=== PATIENT | male | born 1950 | race Caucasian/White ===

== ENCOUNTER 2020-12-23 19:10 | Inpatient (IN) | payer MEDICARE ==
[2020-12-23] MEDS ORDERED: MORPHINE SULFATE 4 MG/ML SYRINGE IV STA (19:26)
[2020-12-23] MEDS ORDERED: SODIUM CHLORIDE 0.9% 1,000 ML IV STA (19:26)
[2020-12-23] MEDS ORDERED: ONDANSETRON 4 MG/2 ML VIAL IVP STA (19:26)
[2020-12-23 19:51] LABS: Basophils # (A) 0.1 k/uL (0-0.2); Basophils % (A) 0 %; Eosinophils # (A) 0.2 k/uL (0-0.7); Eosinophils % (A) 1 %; HCT 42.4 % (39.0-53.0); HGB 14.3 gm/dL (13.0-17.5); Lymphocytes # (A) 1.5 k/uL (1.0-4.8); Lymphocytes % (A) 5 %; MCH 30.7 pg (25.0-35.0); MCHC 33.7 g/dL (31.0-37.0); MCV 91.2 fL (80.0-100.0); Mean Platelet Volume 7.3; Monocytes # (A) 1.1 k/uL (0-1.0); Monocytes % (A) 4 %; Neutrophils % (A) 89 %; Platelet Count 262 k/uL (150-450); RBC 4.65 m/uL (4.30-5.90); WBC 30.3 k/uL (3.8-10.6)
[2020-12-23 20:18] LABS: Appearance,Urine Clear (Clear); Bilirubin,Urine Negative (Negative); Blood,Urine Large (Negative); Color,Urine Yellow; Glucose,Urine (UA) Negative (Negative); Ketones,Urine 2+ (Negative); Leukocyte Esterase,Urine Moderate (Negative); Mucus,Urine Rare /hpf; Nitrite,Urine Negative (Negative); PH, Urine 6.5 (5.0-8.0); Protein,Urine 1+ (Negative); RBC,Urine >182 /hpf (0-5); Specific Gravity,Urine 1.022 (1.001-1.035); WBC,Urine 13 /hpf (0-5)
[2020-12-23 20:20] LABS: ALT 22 U/L (4-49); AST 36 U/L (17-59); African American GFR (CKD) >90 (>60 ml/min/1.73 sqM); Albumin 3.9 g/dL (3.5-5.0); Alkaline Phosphatase 89 U/L (38-126); Amylase 47 U/L (30-110); Anion Gap 10 mmol/L; Blood Urea Nitrogen 13 mg/dL (9-20); Calcium 9.3 mg/dL (8.4-10.2); Carbon Dioxide 23 mmol/L (22-30); Chloride 100 mmol/L (98-107); Glucose 109 mg/dL (74-99); Lipase 43 U/L (23-300); Non-African American GFR(CKD) 90 (>60 ml/min/1.73 sqM); Sodium 133 mmol/L (137-145); Total Bilirubin 1.8 mg/dL (0.2-1.3)
--- NOTE | 2020-12-23 21:18 | CT ---
EXAMINATION TYPE: CT abdomen pelvis w con DATE OF EXAM: 12/23/2020 COMPARISON: None available HISTORY: LT side abdominal pain, back pain CT DLP: 1153.7 mGycm Automated exposure control for dose reduction was used. TECHNIQUE: Helical acquisition of images was performed from the lung bases through the pelvis. CONTRAST: Performed without Oral Contrast and with IV Contrast, patient injected with 100 mL of Isovue 300. FINDINGS: LUNG BASES: No significant abnormality is appreciated. LIVER/GB: No acute abnormality is appreciated. Hepatic steatosis and cholecystectomy seen. PANCREAS: No significant abnormality is seen. SPLEEN: No significant abnormality is seen. ADRENALS: No significant abnormality is seen. KIDNEYS: No significant abnormality is seen. FREE AIR: No free air is visualized. RETROPERITONEAL ADENOPATHY: None visualized REPRODUCTIVE ORGANS: No significant abnormality is seen URINARY BLADDER: Urinary bladder is decompressed by Stanley catheter with intraluminal air seen, likel y postprocedural change. PELVIC ADENOPATHY: None visualized. OSSEOUS STRUCTURES: No significant abnormality is seen. BOWEL: No significant abnormality is seen. OTHER: Moderate atherosclerotic disease. 2.8 cm abdominal aortic ectasia. IMPRESSION: NO DEFINITE ACUTE ABNORMALITY. Chronic and incidental findings as above.
--- NOTE | 2020-12-23 21:37 | ED ---
Abdominal Pain HPI - General Chief Complaint: Abdominal Pain Stated Complaint: ABD Pain Time Seen by Provider: 12/23/20 19:17 Source: patient, RN notes reviewed Mode of arrival: EMS Limitations: no limitations - History of Present Illness Initial Comments: Patient is a 70-year-old male that presents to the emergency department complaining of left lower quadrant pain. He notes he was recently seen his urologist in office procedure they reinsert the catheter and now is having pain. Patient noted that he was having some hematuria in his catheter. He denied any hematochezia melena. He was tender in the left lower quadrant. He was otherwise well-appearing. He denied any chest pain shortness of breath headache nausea vomiting diarrhea constipation fever fatigue chills - Related Data Home Medications Medication Instructions Recorded Confirmed Bethanechol [Urecholine] 25 mg PO TID 12/23/20 12/23/20 Gabapentin 300 mg PO TID 12/23/20 12/23/20 Memantine [Namenda] 10 mg PO BID 12/23/20 12/23/20 Methadone [Dolophine] 5 mg PO TID 12/23/20 12/23/20 Omeprazole 20 mg PO DAILY 12/23/20 12/23/20 Tamsulosin HCl [Flomax] 0.4 mg PO BID 12/23/20 12/23/20 Warfarin Sodium 4 mg PO MOWEFR 12/23/20 12/23/20 Warfarin Sodium 5 mg PO SUTUTHSA 12/23/20 12/23/20 Allergies Allergy/AdvReac Type Severity Reaction Status Date / Time meloxicam [From Mobic] Allergy Anaphylaxis Verified 12/23/20 20:27 Penicillins Allergy Anaphylaxis Verified 12/23/20 20:27 Review of Systems ROS Statement: Those systems with pertinent positive or pertinent negative responses have been documented in the HPI. ROS Other: All systems not noted in ROS Statement are negative. Past Medical History Past Medical History: Chest Pain / Angina, Deep Vein Thrombosis (DVT), Hypertension, Pulmonary Embolus (PE) History of Any Multi-Drug Resistant Organisms: None Reported Past Surgical History: Appendectomy, Cholecystectomy Past Psychological History: No Psychological Hx Reported Smoking Status: Former smoker Past Alcohol Use History: None Reported Past Drug Use History: None Reported General Exam Limitations: no limitations General appearance: alert, in no apparent distress Head exam: Present: atraumatic, normocephalic, normal inspection Eye exam: Present: normal appearance, PERRL, EOMI. Absent: scleral icterus, conjunctival injection, periorbital swelling Neck exam: Present: normal inspection Respiratory exam: Present: normal lung sounds bilaterally. Absent: respiratory distress, wheezes, rales, rhonchi, stridor Cardiovascular Exam: Present: regular rate, normal rhythm, normal heart sounds. Absent: systolic murmur, diastolic murmur, rubs, gallop, clicks GI/Abdominal exam: Present: soft, tenderness (Left lower quadrant), normal bowel sounds. Absent: distended, guarding, rebound, rigid Extremities exam: Present: normal inspection, full ROM, normal capillary refill. Absent: tenderness, pedal edema, joint swelling, calf tenderness Neurological exam: Present: alert, oriented X3 Psychiatric exam: Present: normal affect, normal mood Skin exam: Present: warm, dry, intact, normal color. Absent: rash Course Vital Signs 12/23/20 12/23/20 12/23/20 19:17 20:27 21:00 Temperature 98.5 F Pulse Rate 78 82 81 Respiratory 18 18 Rate Blood Pressure 148/83 123/70 112/68 O2 Sat by Pulse 95 94 L 93 L Oximetry 12/23/20 21:50 Temperature 101.2 F H Pulse Rate Respiratory Rate Blood Pressure O2 Sat by Pulse Oximetry Medical Decision Making - Medical Decision Making 70-year-old male complaining of left lower quadrant with tenderness to palpation. Labs, 1 L normal saline, 2 mg of Toradol, 4 mg of Zofran, CT the abdomen and pelvis ordered. CT abdomen and pelvis negative for any acute findings. Labs: White blood cells 30.3, rest unremarkable. Patient still in pain 2 mg of morphine given. Case discussed with Dr. Goodwin, patient will be admitted for observation with repeat labs in the morning. Dr. reynaldo mg was consulted and will except admit. Vancomycin and Levaquin ordered for IV antibiotics, blood cultures ordered. - Lab Data Result diagrams: 12/23/20 19:41 12/23/20 19:41 Lab Results 12/23/20 12/23/20 12/23/20 Range/Units 19:41 19:41 19:41 WBC 30.3 H (3.8-10.6) k/uL RBC 4.65 (4.30-5.90) m/uL Hgb 14.3 (13.0-17.5) gm/dL Hct 42.4 (39.0-53.0) % MCV 91.2 (80.0-100.0) fL MCH 30.7 (25.0-35.0) pg MCHC 33.7 (31.0-37.0) g/dL RDW 13.0 (11.5-15.5) % Plt Count 262 (150-450) k/uL MPV 7.3 Neutrophils % 89 % Lymphocytes % 5 % Monocytes % 4 % Eosinophils % 1 % Basophils % 0 % Neutrophils # 27.0 H (1.3-7.7) k/uL Lymphocytes # 1.5 (1.0-4.8) k/uL Monocytes # 1.1 H (0-1.0) k/uL Eosinophils # 0.2 (0-0.7) k/uL Basophils # 0.1 (0-0.2) k/uL Sodium 133 L (137-145) mmol/L Potassium 4.0 (3.5-5.1) mmol/L Chloride 100 (98-107) mmol/L Carbon Dioxide 23 (22-30) mmol/L Anion Gap 10 mmol/L BUN 13 (9-20) mg/dL Creatinine 0.82 (0.66-1.25) mg/dL Est GFR (CKD-EPI)AfAm >90 (>60 ml/min/1.73 sqM) Est GFR (CKD-EPI)NonAf 90 (>60 ml/min/1.73 sqM) Glucose 109 H (74-99) mg/dL Lactic Ac Sepsis Rflx Plasma Lactic Acid Jorge (0.7-2.0) mmol/L Calcium 9.3 (8.4-10.2) mg/dL Total Bilirubin 1.8 H (0.2-1.3) mg/dL AST 36 (17-59) U/L ALT 22 (4-49) U/L Alkaline Phosphatase 89 (38-126) U/L Total Protein 7.0 (6.3-8.2) g/dL Albumin 3.9 (3.5-5.0) g/dL Amylase 47 (30-110) U/L Lipase 43 (23-300) U/L Urine Color Yellow Urine Appearance Clear (Clear) Urine pH 6.5 (5.0-8.0) Ur Specific [place] 1.022 (1.001-1.035) Urine Protein 1+ H (Negative) Urine Glucose (UA) Negative (Negative) Urine Ketones 2+ H (Negative) Urine Blood Large H (Negative) Urine Nitrite Negative (Negative) Urine Bilirubin Negative (Negative) Urine Urobilinogen 8.0 (<2.0) mg/dL Ur Leukocyte Esterase Moderate H (Negative) Urine RBC >182 H (0-5) /hpf Urine WBC 13 H (0-5) /hpf Urine Mucus Rare H (None) /hpf 12/23/20 12/23/20 Range/Units 19:41 20:11 WBC (3.8-10.6) k/uL RBC (4.30-5.90) m/uL Hgb (13.0-17.5) gm/dL Hct (39.0-53.0) % MCV (80.0-100.0) fL MCH (25.0-35.0) pg MCHC (31.0-37.0) g/dL RDW (11.5-15.5) % Plt Count (150-450) k/uL MPV Neutrophils % % Lymphocytes % % Monocytes % % Eosinophils % % Basophils % % Neutrophils # (1.3-7.7) k/uL Lymphocytes # (1.0-4.8) k/uL Monocytes # (0-1.0) k/uL Eosinophils # (0-0.7) k/uL Basophils # (0-0.2) k/uL Sodium (137-145) mmol/L Potassium (3.5-5.1) mmol/L Chloride (98-107) mmol/L Carbon Dioxide (22-30) mmol/L Anion Gap mmol/L BUN (9-20) mg/dL Creatinine (0.66-1.25) mg/dL Est GFR (CKD-EPI)AfAm (>60 ml/min/1.73 sqM) Est GFR (CKD-EPI)NonAf (>60 ml/min/1.73 sqM) Glucose (74-99) mg/dL Lactic Ac Sepsis Rflx Y Plasma Lactic Acid Jorge 2.2 H* (0.7-2.0) mmol/L Calcium (8.4-10.2) mg/dL Total Bilirubin (0.2-1.3) mg/dL AST (17-59) U/L ALT (4-49) U/L Alkaline Phosphatase (38-126) U/L Total Protein (6.3-8.2) g/dL Albumin (3.5-5.0) g/dL Amylase (30-110) U/L Lipase (23-300) U/L Urine Color Urine Appearance (Clear) Urine pH (5.0-8.0) Ur Specific [place] (1.001-1.035) Urine Protein (Negative) Urine Glucose (UA) (Negative) Urine Ketones (Negative) Urine Blood (Negative) Urine Nitrite (Negative) Urine Bilirubin (Negative) Urine Urobilinogen (<2.0) mg/dL Ur Leukocyte Esterase (Negative) Urine RBC (0-5) /hpf Urine WBC (0-5) /hpf Urine Mucus (None) /hpf - EKG Data -: EKG Interpreted by [place] EKG shows normal: sinus rhythm Rate: normal EKG Comments: Ventricular rate 73 bpm, FL interval 160 ms, QRS duration 80 ms, QTC 407 ms, PRT axes 70/51/60. Normal sinus rhythm, normal ECG. - Radiology Data Radiology results: report reviewed, image reviewed Computed tomography scan of the abdomen and pelvis: No definite acute abnormality. Chronic and incidental findings as above. Disposition Clinical Impression: Urinary tract infection, Bacteremia Disposition: ADMITTED IP TO THIS HOSP Condition: Stable Referrals: None,Stated [Primary Care Provider] - 1-2 days Time of Disposition: 22:29
[2020-12-23] MEDS ORDERED: metroNIDAZOLE-NS PMX 500 MG in SALINE 1 100ML.BAG IVPB STA (22:02)
[2020-12-23] MEDS ORDERED: LEVOFLOXACIN 750MG-D5W PMX 750 MG in DEXTROSE/WATER 1 150ML.BAG IVPB STA (22:02)
[2020-12-23] MEDS ORDERED: ACETAMINOPHEN TAB 500 MG TAB PO STA (22:02)
[2020-12-23] MEDS ORDERED: NALOXONE 0.4 MG/ML 1 ML VIAL IV PRN (22:06)
[2020-12-23] MEDS ORDERED: VANCOMYCIN IV PER PHARMACY 1 EACH MISC MISCELLANE PRN (22:09)
[2020-12-23] MEDS ORDERED: VANCOMYCIN 1,500 MG in SODIUM CHLORIDE 0.9% 250 ML IVPB ONE (22:15)
[2020-12-23] MEDS: SODIUM CHLORIDE 0.9% 1,000 ML IV SCH (23:06)
[2020-12-23] MEDS: MORPHINE SULFATE 4 MG/ML SYRINGE IV PRN (23:06)
--- NOTE | 2020-12-24 03:18 | P.HPIM ---
History of Present Illness H&P Date: 12/24/20 The patient is a 70-year-old male with a PMH of BPH, history of DVT and PE on Coumadin, who presented to the ED w/ complaints of abdominal pain and dysuria. He reports that his symptoms started 4-5 days ago with groosly blood urine. He notes having undergone multiple foleycatheter placements due to his significant BPH would last one roughly about a week ago with subsequent removal and voiding trial. The patient notes that he has been having difficulty at home dose self cathing and reports dysuria. He reports that over the past 2-3 days, he has had left lower quadrant abdominal pain with radiation to the left flank. The pain is 10 out of 10 at time of evaluation, aching in nature, with no alleviating or exacerbating features. He denied fever, chills, nausea, vomiting, diarrhea. Denied chest pain, shortness of breath or cough. CT abdomen and pelvis with contrast in the emergency room was unremarkable. Review of systems: Pertinent positives and negatives as discussed in HPI, a complete review of systems was performed and all other systems are negative. Physical examination: General: non toxic, in moderate distress, appears at stated age, normal weight Derm: no unusual rashes/lesions no unusual ecchymoses, warm, dry Head: atraumatic, normocephalic, symmetric Eyes: EOMI, no lid lag, anicteric sclera, pupils equal round reactive to light ENT: Nose and ears atraumatic, no thrush, no pharyngeal erythema Neck: No thyromegaly, no cervical lymphadenopathy, trachea midline, supple Mouth: no lip lesion, mucus membranes moist Cardiovascular: S1S2 reg, no murmur, positive posterior tibial pulse bilateral, no edema, capillary refill less than 2 seconds Lungs: CTA bilateral, no rhonchi, no rales , no accessory muscle use Abdominal: soft, left CVA tenderness and left diffuse abdominal tenderness moderate, no guarding, no appreciable organomegaly, normal bowel sounds Ext: no gross muscle atrophy, muscle strength 5 out of 5 in all 4 extremities grossly, no contractures, Neuro: CN II-XI grossly intact, light touch intact all 4 extremities, finger to nose within normal limits, Psych: Alert, oriented, appropriate affect Assessment/plan Severe sepsis secondary to UTI -Continue Levaquin -IV fluids -Urology consult -Urine cultures Lactic acidosis -Continue with IV fluids and monitor for resolution Chronic conditions: DVT/PE -Continue with home meds DVT prophylaxis -Coumadin The patient is admitted with an anticipated greater than 2 midnight stay for evaluation of sepsis uti. CODE STATUS: Full code Discussed with: patient Anticipated discharge date: 2-[address]: Home Past Medical History Past Medical History: Chest Pain / Angina, Deep Vein Thrombosis (DVT), Hypertension, Pulmonary Embolus (PE) History of Any Multi-Drug Resistant Organisms: None Reported Past Surgical History: Appendectomy, Cholecystectomy, Heart Catheterization With Stent, Orthopedic Surgery, Tonsillectomy Additional Past Surgical History / Comment(s): Made reference to metal plates in his neck Past Anesthesia/Blood Transfusion Reactions: No Reported Reaction Date of Last Stent Placement:: 1979 Past Psychological History: No Psychological Hx Reported Smoking Status: Former smoker Past Alcohol Use History: None Reported Past Drug Use History: None Reported Medications and Allergies Home Medications Medication Instructions Recorded Confirmed Type Bethanechol [Urecholine] 25 mg PO TID 12/23/20 12/23/20 History Gabapentin 300 mg PO TID 12/23/20 12/23/20 History Memantine [Namenda] 10 mg PO BID 12/23/20 12/23/20 History Methadone [Dolophine] 5 mg PO TID 12/23/20 12/23/20 History Omeprazole 20 mg PO DAILY 12/23/20 12/23/20 History Tamsulosin HCl [Flomax] 0.4 mg PO BID 12/23/20 12/23/20 History Warfarin Sodium 4 mg PO MOWEFR 12/23/20 12/23/20 History Warfarin Sodium 5 mg PO SUTUTHSA 12/23/20 12/23/20 History Allergies Allergy/AdvReac Type Severity Reaction Status Date / Time meloxicam [From Mobic] Allergy Anaphylaxis Verified 12/23/20 20:27 Penicillins Allergy Anaphylaxis Verified 12/23/20 20:27 Physical Exam Vitals: Vital Signs Temp Pulse Pulse Resp BP BP Pulse Ox 12/23/20 23:56 98.3 F 67 18 145/80 97 12/23/20 23:00 97.8 F 68 16 111/76 12/23/20 21:50 101.2 F H 12/23/20 21:00 81 18 112/68 93 L 12/23/20 20:27 82 123/70 94 L 12/23/20 19:17 98.5 F 78 18 148/83 95 Intake and Output 12/23/20 12/23/20 12/24/20 14:59 22:59 06:59 Output Total 550 Balance -550 Output: Urine 550 Other: Weight 96.162 kg 96.162 kg Results CBC & Chem 7: 12/23/20 19:41 12/23/20 19:41 Labs: Abnormal Lab Results - Last 24 Hours (Table) 12/23/20 12/23/20 12/23/20 Range/Units 19:41 19:41 19:41 WBC 30.3 H (3.8-10.6) k/uL Neutrophils # 27.0 H (1.3-7.7) k/uL Monocytes # 1.1 H (0-1.0) k/uL Sodium 133 L (137-145) mmol/L Glucose 109 H (74-99) mg/dL Plasma Lactic Acid Jorge (0.7-2.0) mmol/L Total Bilirubin 1.8 H (0.2-1.3) mg/dL Urine Protein 1+ H (Negative) Urine Ketones 2+ H (Negative) Urine Blood Large H (Negative) Ur Leukocyte Esterase Moderate H (Negative) Urine RBC >182 H (0-5) /hpf Urine WBC 13 H (0-5) /hpf Urine Mucus Rare H (None) /hpf 12/23/20 Range/Units 19:41 WBC (3.8-10.6) k/uL Neutrophils # (1.3-7.7) k/uL Monocytes # (0-1.0) k/uL Sodium (137-145) mmol/L Glucose (74-99) mg/dL Plasma Lactic Acid Jorge 2.2 H* (0.7-2.0) mmol/L Total Bilirubin (0.2-1.3) mg/dL Urine Protein (Negative) Urine Ketones (Negative) Urine Blood (Negative) Ur Leukocyte Esterase (Negative) Urine RBC (0-5) /hpf Urine WBC (0-5) /hpf Urine Mucus (None) /hpf Thrombosis Risk Factor Assmnt - Choose All That Apply Each Factor Represents 1 point: Abnormal pulmonary function (COPD), Medical pt on bed rest, Obesity (BMI >25), Sepsis (< 1month) Other Risk Factors: Yes Each Risk Factor Represents 2 Points: Age 61-74 years Each Risk Factor Represents 3 Points: History of DVT/PE Other congenital or acquired thrombophilia - If yes, enter type in comment: No Thrombosis Risk Factor Assessment Total Risk Factor Score: 9 Thrombosis Risk Factor Assessment Level: High Risk
[2020-12-24] MEDS: MORPHINE SULFATE 4 MG/ML SYRINGE IV PRN (04:47)
[2020-12-24] MEDS: SODIUM CHLORIDE 0.9% 1,000 ML IV SCH ×3 (04:51→20:20)
[2020-12-24 06:36] LABS: HCT 38.2 % (39.0-53.0); HGB 12.7 gm/dL (13.0-17.5); MCH 30.6 pg (25.0-35.0); MCHC 33.4 g/dL (31.0-37.0); MCV 91.5 fL (80.0-100.0); Mean Platelet Volume 6.8; Platelet Count 205 k/uL (150-450); RBC 4.17 m/uL (4.30-5.90); RDW 13.5 % (11.5-15.5); WBC 19.7 k/uL (3.8-10.6)
[2020-12-24 06:41] LABS: INR 2.1 (<1.2); Prothrombin Time 20.4 sec (9.0-12.0)
[2020-12-24 06:59] LABS: African American GFR (CKD) >90 (>60 ml/min/1.73 sqM); Anion Gap 10 mmol/L; Blood Urea Nitrogen 11 mg/dL (9-20); Calcium 8.7 mg/dL (8.4-10.2); Carbon Dioxide 23 mmol/L (22-30); Chloride 104 mmol/L (98-107); Glucose 103 mg/dL (74-99); Non-African American GFR(CKD) >90 (>60 ml/min/1.73 sqM); Potassium 3.9 mmol/L (3.5-5.1); Sodium 137 mmol/L (137-145)
[2020-12-24 07:31] LABS: Glucose,Whole Blood 110 mg/dL (75-99)
[2020-12-24] MEDS ORDERED: VANCOMYCIN 1,500 MG in SODIUM CHLORIDE 0.9% 250 ML IVPB SCH (08:00)
[2020-12-24] MEDS: ONDANSETRON 4 MG/2 ML VIAL IVP PRN ×2 (09:05→16:28)
[2020-12-24] MEDS: MEMANTINE 10 MG TAB PO SCH ×2 (09:44→20:41)
[2020-12-24] MEDS: METHADONE 5 MG TAB PO SCH ×3 (09:44→20:41)
[2020-12-24] MEDS: TAMSULOSIN 0.4 MG CAP.ER.24H PO SCH ×2 (09:44→20:41)
--- NOTE | 2020-12-24 12:48 | P.PN ---
Subjective Progress Note Date: 12/24/20 Hospitalist Interval Note Patient seen and examined at bedside. He had some nausea this morning which responded to Zofran. Denies any chest discomfort or shortness of breath. Continues to have some left upper and lower quadrant pain as well as back pain. He was being seen by a urologist not associated with our facility and states he had a Stanley catheter secondary urinary retention that was discontinued about 7 days ago and office after he passed a voiding trial. 7 days later he began having problems with urination again. Vital signs reviewed General: + toxic, no distress, appears at stated age Derm: warm, dry, diaphoretic Head: atraumatic, normocephalic, symmetric Eyes: EOMI, no lid lag, anicteric sclera Mouth: no lip lesion, mucus membranes moist Cardiovascular: S1S2 reg, no murmur, positive posterior tibial pulse bilateral, Lungs: CTA bilateral, no rhonchi, no rales , no accessory muscle use Abdominal: soft, +tender to palpation LUQ, LLQ and left flank, no guarding, no appreciable organomegaly Ext: no gross muscle atrophy, no edema, no contractures Neuro: CN II-XI grossly intact, no focal neuro deficits Psych: Alert, oriented, appropriate affect Assessment/Plan: Pyelonephritis with sepsis, present on admission -Await ID recs. In the meantime stop vancomycin as this is a probable urinary tract infection. -Consider possible transition from Levaquin to cephalosporin with low chance of cross reactivity -IV fluids -Await cultures -Blood cultures pending History of urinary retention -Await urology recommendations -Flomax - consider adding proscar if urology in agreement Pulmonary embolism less than one year ago -Continue with Coumadin, pharmacy to dose This is an update note for patient , for full note on 12/24 see H and P. There is no charge associated with this note. Objective - Vital Signs Vital signs: Vital Signs Temp 97.8 F 12/24/20 07:30 Pulse 73 12/24/20 07:30 Resp 16 12/24/20 04:41 BP 144/82 12/24/20 07:30 Pulse Ox 97 12/24/20 07:30 Intake & Output 12/23/20 12/24/20 12/24/20 18:59 06:59 18:59 Output Total 550 150 Balance -550 -150 Weight 96.162 kg Output: Urine 550 Emesis 150 Other: Voiding Method Indwelling Catheter Indwelling Catheter # Voids 2 # Emeses 1 - Labs CBC & Chem 7: 12/24/20 06:01 12/24/20 06:01 Labs: Abnormal Lab Results - Last 24 Hours (Table) 12/23/20 12/23/20 12/23/20 Range/Units 19:41 19:41 19:41 WBC 30.3 H (3.8-10.6) k/uL RBC (4.30-5.90) m/uL Hgb (13.0-17.5) gm/dL Hct (39.0-53.0) % Neutrophils # 27.0 H (1.3-7.7) k/uL Monocytes # 1.1 H (0-1.0) k/uL PT (9.0-12.0) sec INR (<1.2) Sodium 133 L (137-145) mmol/L Creatinine (0.66-1.25) mg/dL Glucose 109 H (74-99) mg/dL POC Glucose (mg/dL) (75-99) mg/dL Plasma Lactic Acid Jorge (0.7-2.0) mmol/L Total Bilirubin 1.8 H (0.2-1.3) mg/dL Urine Protein 1+ H (Negative) Urine Ketones 2+ H (Negative) Urine Blood Large H (Negative) Ur Leukocyte Esterase Moderate H (Negative) Urine RBC >182 H (0-5) /hpf Urine WBC 13 H (0-5) /hpf Urine Mucus Rare H (None) /hpf 12/23/20 12/24/20 12/24/20 Range/Units 19:41 06:01 06:01 WBC 19.7 H (3.8-10.6) k/uL RBC 4.17 L (4.30-5.90) m/uL Hgb 12.7 L (13.0-17.5) gm/dL Hct 38.2 L (39.0-53.0) % Neutrophils # (1.3-7.7) k/uL Monocytes # (0-1.0) k/uL PT 20.4 H (9.0-12.0) sec INR 2.1 H (<1.2) Sodium (137-145) mmol/L Creatinine (0.66-1.25) mg/dL Glucose (74-99) mg/dL POC Glucose (mg/dL) (75-99) mg/dL Plasma Lactic Acid Jorge 2.2 H* (0.7-2.0) mmol/L Total Bilirubin (0.2-1.3) mg/dL Urine Protein (Negative) Urine Ketones (Negative) Urine Blood (Negative) Ur Leukocyte Esterase (Negative) Urine RBC (0-5) /hpf Urine WBC (0-5) /hpf Urine Mucus (None) /hpf 12/24/20 12/24/20 Range/Units 06:01 07:26 WBC (3.8-10.6) k/uL RBC (4.30-5.90) m/uL Hgb (13.0-17.5) gm/dL Hct (39.0-53.0) % Neutrophils # (1.3-7.7) k/uL Monocytes # (0-1.0) k/uL PT (9.0-12.0) sec INR (<1.2) Sodium (137-145) mmol/L Creatinine 0.61 L (0.66-1.25) mg/dL Glucose 103 H (74-99) mg/dL POC Glucose (mg/dL) 110 H (75-99) mg/dL Plasma Lactic Acid Jorge (0.7-2.0) mmol/L Total Bilirubin (0.2-1.3) mg/dL Urine Protein (Negative) Urine Ketones (Negative) Urine Blood (Negative) Ur Leukocyte Esterase (Negative) Urine RBC (0-5) /hpf Urine WBC (0-5) /hpf Urine Mucus (None) /hpf Microbiology - Last 24 Hours (Table) 12/23/20 19:41 Urine Culture - Preliminary Urine,Voided
[2020-12-24 13:02] VITALS: BMI 26.4
[2020-12-24] MEDS: ACETAMINOPHEN TAB 325 MG TAB PO PRN (16:27)
[2020-12-24] MEDS ORDERED: WARFARIN 5 MG TAB PO ONE (18:00)
[2020-12-24] MEDS: LEVOFLOXACIN 750MG-D5W PMX 750 MG in DEXTROSE/WATER 1 150ML.BAG IVPB SCH (20:18)
--- NOTE | 2020-12-24 23:48 | P.CONS ---
History of Present Illness - Reason for Consult Consult date: 12/24/20 sepsis Requesting physician: Amelia Davis - Chief Complaint left sided abd pain and fever x 1 day - History of Present Illness History of present illness : Patient is 70-year-old male presenting to the ER at [facility] last evening for evaluation of left lower quadrant abdominal pain patient seem to have problem with the urinary outflow obstruction for which the patient did have a Stanley catheter placed it was removed in the office last week however the patient did have difficulty urination has a Stanley catheter during surgery patient will present to hospital with left leg pain described with more of a sharp nature 5-6 out of 10 and no radiation patient has nausea but no vomiting and denies any diarrhea on presentation to the hospital patient had fever of 101.34 night patient did have a white count of 30,000 repeat this morning is 98.7 he did have normal kidney function lactic acid was elevated liver exams normal did have positive UA woods PCR was negative patient did have a CT of abdominal pelvis no definite acute abnormality reported the patient was started on Levaquin and vancomycin vancomycin subsequently was continued infectious was consulted for further management of antibiotic therapy Review of system: Positive point has been mentioned in HPI rest of the systems are negative Past medical history : Reviewed, documented below Past surgical history : Reviewed, documented below Social history: Reviewed, documented below Medications: Reviewed, as documented below GENERAL DESCRIPTION: Elderly male lying in bed, no distress. No tachypnea or accessory muscle of respiration use. HEENT: Shows Pallor , no scleral icterus. Oral mucous membrane is dry. NECK: Trachea central, no thyromegaly. LUNGS: Unlabored breathing. Clear to auscultation anteriorly. No wheeze or crackle. HEART: S1, S2, regular rate and rhythm. ABDOMEN: Soft, no tenderness , guarding or rigidity EXTREMITIES: No edema of feet. SKIN: No rash, no masses palpable. NEUROLOGICAL: The patient is awake, alert, oriented x3, mood and affect normal. LABS AND RADIOLOGY: Reviewed results see below Assessment : 1-Patient presented to hospital with sepsis in this patient did have fever elevated white count tachycardia in this patient have left flank pain with a history of urinary outflow obstruction requiring Stanley catheter placement likely secondary to catheter associated infection and likely from enteric gram- negative pathogen 2-patient with multiple antibiotic allergies that would limit the number of antibiotics safe to use Plan: 1-we will start the patient on Rocephin 2 g IV biyearly 2-gentle IV fluid We will follow on clinical condition and cultures to further adjust medication if needed Thank you for this consultation we will follow the patient along with you Past Medical History Past Medical History: Chest Pain / Angina, Deep Vein Thrombosis (DVT), Hypertension, Pulmonary Embolus (PE) History of Any Multi-Drug Resistant Organisms: None Reported Past Surgical History: Appendectomy, Cholecystectomy, Heart Catheterization With Stent, Orthopedic Surgery, Tonsillectomy Additional Past Surgical History / Comment(s): Made reference to metal plates in his neck Past Anesthesia/Blood Transfusion Reactions: No Reported Reaction Date of Last Stent Placement:: 1979 Past Psychological History: No Psychological Hx Reported Smoking Status: Former smoker Past Alcohol Use History: None Reported Past Drug Use History: None Reported Medications and Allergies Home Medications Medication Instructions Recorded Confirmed Type Bethanechol [Urecholine] 25 mg PO TID 12/23/20 12/23/20 History Gabapentin 300 mg PO TID 12/23/20 12/23/20 History Memantine [Namenda] 10 mg PO BID 12/23/20 12/23/20 History Methadone [Dolophine] 5 mg PO TID 12/23/20 12/23/20 History Omeprazole 20 mg PO DAILY 12/23/20 12/23/20 History Tamsulosin HCl [Flomax] 0.4 mg PO BID 12/23/20 12/23/20 History Warfarin Sodium 4 mg PO MOWEFR 12/23/20 12/23/20 History Warfarin Sodium 5 mg PO SUTUTHSA 12/23/20 12/23/20 History Allergies Allergy/AdvReac Type Severity Reaction Status Date / Time meloxicam [From Mobic] Allergy Anaphylaxis Verified 12/23/20 20:27 Penicillins Allergy Anaphylaxis Verified 12/23/20 20:27 Physical Exam Vitals: Vital Signs Temp Pulse Pulse Resp BP BP BP 12/24/20 07:30 97.8 F 73 144/82 12/24/20 04:41 98.1 F 71 16 121/75 12/23/20 23:56 98.3 F 67 18 145/80 12/23/20 23:00 97.8 F 68 16 111/76 12/23/20 21:50 101.2 F H 12/23/20 21:00 81 18 112/68 12/23/20 20:27 82 123/70 12/23/20 19:17 98.5 F 78 18 148/83 Pulse Ox 12/24/20 07:30 97 12/24/20 04:41 97 12/23/20 23:56 97 12/23/20 23:00 12/23/20 21:50 12/23/20 21:00 93 L 12/23/20 20:27 94 L 12/23/20 19:17 95 Intake and Output 12/23/20 12/24/20 12/24/20 22:59 06:59 14:59 Output Total 550 150 Balance -550 -150 Output: Urine 550 Emesis 150 Other: Voiding Method Indwelling Catheter # Voids 2 # Emeses 1 Weight 96.162 kg 96.162 kg Results CBC & Chem 7: 12/24/20 06:01 12/24/20 06:01 Labs: Abnormal Lab Results - Last 24 Hours (Table) 12/23/20 12/23/20 12/23/20 Range/Units 19:41 19:41 19:41 WBC 30.3 H (3.8-10.6) k/uL RBC (4.30-5.90) m/uL Hgb (13.0-17.5) gm/dL Hct (39.0-53.0) % Neutrophils # 27.0 H (1.3-7.7) k/uL Monocytes # 1.1 H (0-1.0) k/uL PT (9.0-12.0) sec INR (<1.2) Sodium 133 L (137-145) mmol/L Creatinine (0.66-1.25) mg/dL Glucose 109 H (74-99) mg/dL POC Glucose (mg/dL) (75-99) mg/dL Plasma Lactic Acid Jorge (0.7-2.0) mmol/L Total Bilirubin 1.8 H (0.2-1.3) mg/dL Urine Protein 1+ H (Negative) Urine Ketones 2+ H (Negative) Urine Blood Large H (Negative) Ur Leukocyte Esterase Moderate H (Negative) Urine RBC >182 H (0-5) /hpf Urine WBC 13 H (0-5) /hpf Urine Mucus Rare H (None) /hpf 12/23/20 12/24/20 12/24/20 Range/Units 19:41 06:01 06:01 WBC 19.7 H (3.8-10.6) k/uL RBC 4.17 L (4.30-5.90) m/uL Hgb 12.7 L (13.0-17.5) gm/dL Hct 38.2 L (39.0-53.0) % Neutrophils # (1.3-7.7) k/uL Monocytes # (0-1.0) k/uL PT 20.4 H (9.0-12.0) sec INR 2.1 H (<1.2) Sodium (137-145) mmol/L Creatinine (0.66-1.25) mg/dL Glucose (74-99) mg/dL POC Glucose (mg/dL) (75-99) mg/dL Plasma Lactic Acid Jorge 2.2 H* (0.7-2.0) mmol/L Total Bilirubin (0.2-1.3) mg/dL Urine Protein (Negative) Urine Ketones (Negative) Urine Blood (Negative) Ur Leukocyte Esterase (Negative) Urine RBC (0-5) /hpf Urine WBC (0-5) /hpf Urine Mucus (None) /hpf 12/24/20 12/24/20 Range/Units 06:01 07:26 WBC (3.8-10.6) k/uL RBC (4.30-5.90) m/uL Hgb (13.0-17.5) gm/dL Hct (39.0-53.0) % Neutrophils # (1.3-7.7) k/uL Monocytes # (0-1.0) k/uL PT (9.0-12.0) sec INR (<1.2) Sodium (137-145) mmol/L Creatinine 0.61 L (0.66-1.25) mg/dL Glucose 103 H (74-99) mg/dL POC Glucose (mg/dL) 110 H (75-99) mg/dL Plasma Lactic Acid Jorge (0.7-2.0) mmol/L Total Bilirubin (0.2-1.3) mg/dL Urine Protein (Negative) Urine Ketones (Negative) Urine Blood (Negative) Ur Leukocyte Esterase (Negative) Urine RBC (0-5) /hpf Urine WBC (0-5) /hpf Urine Mucus (None) /hpf Microbiology - Last 24 Hours (Table) 12/23/20 19:41 Urine Culture - Preliminary Urine,Voided
[2020-12-25] MEDS: ONDANSETRON 4 MG/2 ML VIAL IVP PRN ×2 (03:33→13:22)
[2020-12-25] MEDS: SODIUM CHLORIDE 0.9% 1,000 ML IV SCH ×3 (05:29→20:21)
[2020-12-25 06:16] LABS: HCT 39.2 % (39.0-53.0); HGB 12.8 gm/dL (13.0-17.5); MCH 30.2 pg (25.0-35.0); MCHC 32.7 g/dL (31.0-37.0); MCV 92.2 fL (80.0-100.0); Mean Platelet Volume 7.4; Platelet Count 244 k/uL (150-450); RBC 4.24 m/uL (4.30-5.90); RDW 13.6 % (11.5-15.5); WBC 13.4 k/uL (3.8-10.6)
[2020-12-25 06:24] LABS: INR 2.2 (<1.2); Prothrombin Time 21.3 sec (9.0-12.0)
[2020-12-25] MEDS ORDERED: VANCOMYCIN TROUGH DUE 1 EACH MISC MISCELLANE ONE (07:00)
[2020-12-25] MEDS: METHADONE 5 MG TAB PO SCH ×3 (07:58→20:20)
[2020-12-25] MEDS: TAMSULOSIN 0.4 MG CAP.ER.24H PO SCH ×2 (07:59→20:20)
[2020-12-25] MEDS: MEMANTINE 10 MG TAB PO SCH ×2 (07:59→20:20)
[2020-12-25] MEDS: CALCIUM CARBONATE 500 MG CHEWABLE PO PRN (08:03)
[2020-12-25 09:47] LABS: African American GFR (CKD) 118.1 (60.0-200.0); Anion Gap 8.7 mmol/L (4.00-12.00); Calcium 8.5 mg/dL (8.7-10.3); Carbon Dioxide 24.3 mmol/L (21.6-31.8); Non-African American GFR(CKD) 101.9 (60.0-200.0); Potassium 3.8 mmol/L (3.5-5.5)
--- NOTE | 2020-12-25 11:29 | P.GSCN ---
History of Present Illness Consult date: 12/25/20 Reason for Consult: Urinary retention Requesting physician: Amelia Davis History of present illness: The patient is a 70-year-old male with recent urinary retention. He is being followed by Dr. Dueñas in [place]. He has failed voiding trials and thus has an indwelling Stanley catheter. At one point, he was performing intermittent self-catheterization but the indwelling catheter was replaced when he was unable to catheterize himself. Dr. Dueñas has performed cystoscopy and recommended a TURP. However, the patient is on anticoagulants for a DVT and pulmonary embolus, and thus a TURP cannot be performed. He is now admitted with abdominal pain, nausea, vomiting, and fever. A computed tomography scan of the abdomen and pelvis shows no urologic abnormalities. Review of Systems - Constitutional Reports fever - Gastrointestinal Reports nausea, Reports vomiting - Genitourinary Reports as per HPI Past Medical History Past Medical History: Chest Pain / Angina, Deep Vein Thrombosis (DVT), Hypertension, Pulmonary Embolus (PE) History of Any Multi-Drug Resistant Organisms: None Reported Past Surgical History: Appendectomy, Cholecystectomy, Heart Catheterization With Stent, Orthopedic Surgery, Tonsillectomy Additional Past Surgical History / Comment(s): Made reference to metal plates in his neck Past Anesthesia/Blood Transfusion Reactions: No Reported Reaction Date of Last Stent Placement:: 1979 Past Psychological History: No Psychological Hx Reported Smoking Status: Former smoker Past Alcohol Use History: None Reported Past Drug Use History: None Reported Medications and Allergies Home Medications Medication Instructions Recorded Confirmed Type Bethanechol [Urecholine] 25 mg PO TID 12/23/20 12/23/20 History Gabapentin 300 mg PO TID 12/23/20 12/23/20 History Memantine [Namenda] 10 mg PO BID 12/23/20 12/23/20 History Methadone [Dolophine] 5 mg PO TID 12/23/20 12/23/20 History Omeprazole 20 mg PO DAILY 12/23/20 12/23/20 History Tamsulosin HCl [Flomax] 0.4 mg PO BID 12/23/20 12/23/20 History Warfarin Sodium 4 mg PO MOWEFR 12/23/20 12/23/20 History Warfarin Sodium 5 mg PO SUTUTHSA 12/23/20 12/23/20 History Allergies Allergy/AdvReac Type Severity Reaction Status Date / Time meloxicam [From Mobic] Allergy Anaphylaxis Verified 12/23/20 20:27 Penicillins Allergy Anaphylaxis Verified 12/23/20 20:27 Surgical - Exam Vital Signs Temp Pulse Resp BP Pulse Ox 98.5 F 78 18 148/83 95 12/23/20 19:17 12/23/20 19:17 12/23/20 19:17 12/23/20 19:17 12/23/20 19:17 - General well developed, well nourished, no distress - Respiratory normal respiratory effort - Abdomen Abdomen: soft, non tender, no guarding, no rigid, no rebound - Genitourinary The penis appears normal. A Stanley catheter is in place. There is mild scrotal edema. The left testicle is enlarged, hard, and tender. Results - Labs 12/25/20 05:29 12/25/20 05:29 Abnormal Lab Results - Last 24 Hours (Table) 12/25/20 12/25/20 12/25/20 Range/Units 05:29 05:29 05:29 WBC 13.4 H (3.8-10.6) k/uL RBC 4.24 L (4.30-5.90) m/uL Hgb 12.8 L (13.0-17.5) gm/dL PT 21.3 H (9.0-12.0) sec INR 2.2 H (<1.2) Calcium 8.5 L (8.7-10.3) mg/dL Microbiology - Last 24 Hours (Table) 12/23/20 19:50 Blood Culture - Preliminary Blood No Growth after 24 hours 12/23/20 20:05 Blood Culture - Preliminary Blood No Growth after 24 hours 12/23/20 19:41 Urine Culture - Preliminary Urine,Voided Diabetes panel 12/25/20 Range/Units 05:29 Sodium 138 (135-145) mmol/L Potassium 3.8 (3.5-5.5) mmol/L Chloride 105 (96-109) mmol/L Carbon Dioxide 24.3 (21.6-31.8) mmol/L BUN 9.0 (9.0-27.0) mg/dL Creatinine 0.6 (0.6-1.5) mg/dL Glucose 94 (70-110) mg/dL Calcium 8.5 L (8.7-10.3) mg/dL Calcium panel 08/14/21 Range/Units 05:29 Calcium 8.5 L (8.7-10.3) mg/dL Pituitary panel 12/25/20 Range/Units 05:29 Sodium 138 (135-145) mmol/L Potassium 3.8 (3.5-5.5) mmol/L Chloride 105 (96-109) mmol/L Carbon Dioxide 24.3 (21.6-31.8) mmol/L BUN 9.0 (9.0-27.0) mg/dL Creatinine 0.6 (0.6-1.5) mg/dL Glucose 94 (70-110) mg/dL Calcium 8.5 L (8.7-10.3) mg/dL Adrenal panel 12/25/20 Range/Units 05:29 Sodium 138 (135-145) mmol/L Potassium 3.8 (3.5-5.5) mmol/L Chloride 105 (96-109) mmol/L Carbon Dioxide 24.3 (21.6-31.8) mmol/L BUN 9.0 (9.0-27.0) mg/dL Creatinine 0.6 (0.6-1.5) mg/dL Glucose 94 (70-110) mg/dL Calcium 8.5 L (8.7-10.3) mg/dL Assessment and Plan (1) Urinary retention Current Visit: Yes Status: Acute Code(s): R33.9 - RETENTION OF URINE, UNSPECIFIED SNOMED Code(s): 208855956 (2) Left epididymitis Current Visit: Yes Status: Acute Code(s): N45.1 - EPIDIDYMITIS SNOMED Code(s): 67582506 Plan: The patient has urinary retention and has failed conservative therapy. TURP is contraindicated due to his requirement for anticoagulation. A Stanley catheter is in place, and he now has epididymo-orchitis. He is receiving Rocephin, pending a urine culture result. Blood cultures are negative. I have suggested that the catheter remain in place and that he follow up with Dr. Dueñas for continuity of care. It is my feeling that an attempt should be made to identify a catheter with which he is able to successfully self catheterize, as this carries with it a lower risk of infection and an indwelling catheter. He should be treated with a 10-14 day course of antibiotics to treat the epididymitis. If the culture is negative, treatment with a broad-spectrum antibiotic such as Bactrim or a quinolone would be reasonable. Please notify me if we can be of further assistance. Time with Patient: Greater than 30
--- NOTE | 2020-12-25 14:39 | P.PN ---
Subjective Progress Note Date: 12/25/20 Principal diagnosis: CC: Testicular pain The patient is a 70-year-old male with a PMH of BPH, history of DVT and PE on Coumadin, who presented to the ED w/ complaints of abdominal pain and dysuria. Patient had a Stanley catheter placed in the ED. Patient was started on IV Rocephin. The following day patient developed epididymo-orchitis Patient this morning is complaining of nausea and vomiting. He states that his testicles are swollen and painful. Objective - Vital Signs Vital signs: Vital Signs Temp 98.6 F 12/25/20 13:05 Pulse 70 12/25/20 13:05 Resp 20 12/25/20 13:05 BP 136/83 12/25/20 13:05 Pulse Ox 98 12/25/20 13:05 Intake & Output 12/24/20 12/25/20 12/25/20 18:59 06:59 18:59 Intake Total 1560 590 Output Total 1550 1000 Balance 10 -410 Weight 96.162 kg Intake: Intake, IV Titration 1560 Amount Sodium Chloride 0.9% 1, 1560 000 ml @ 130 mls/hr IV . 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 - Moving all 4 extremities spontaneously Psych - Calm and cooperative - Labs CBC & Chem 7: 12/25/20 05:29 12/25/20 05:29 Labs: Abnormal Lab Results - Last 24 Hours (Table) 12/25/20 12/25/20 12/25/20 Range/Units 05:29 05:29 05:29 WBC 13.4 H (3.8-10.6) k/uL RBC 4.24 L (4.30-5.90) m/uL Hgb 12.8 L (13.0-17.5) gm/dL PT 21.3 H (9.0-12.0) sec INR 2.2 H (<1.2) Calcium 8.5 L (8.7-10.3) mg/dL Microbiology - Last 24 Hours (Table) 12/23/20 19:50 Blood Culture - Preliminary Blood No Growth after 24 hours 12/23/20 20:05 Blood Culture - Preliminary Blood No Growth after 24 hours Assessment and Plan Assessment: #Severe sepsis secondary to UTI/pyelonephritis and epididymo-orchitis #UTI/pyelonephritis #epididymo-orchitis -Continue reocephin as per ID -IV fluids -Urology recommends to treat for at least 10-14 days. Per urology if urine culture is negative then to treat with broad-spectrum antibiotics such as Bactrim or quinolones -Urine cultures -blood cultures -WBC trending down #Lactic acidosis -Normalized with fluids Chronic conditions: DVT/PE -Continue with home meds DVT prophylaxis -Coumadin CODE STATUS: Full code Discussed with: patient Anticipated discharge date: 2-[address]: Home
[2020-12-25] MEDS: ACETAMINOPHEN TAB 325 MG TAB PO PRN (16:43)
[2020-12-25] MEDS ORDERED: WARFARIN 5 MG TAB PO ONE (18:00)
[2020-12-25] MEDS: MORPHINE SULFATE 4 MG/ML SYRINGE IV PRN (19:07)
--- NOTE | 2020-12-25 19:32 | PN ---
PROGRESS NOTE DATE OF SERVICE: 12/25/2020 REASON FOR FOLLOWUP: Urinary tract infection, complicated. INTERVAL HISTORY: The patient's fever has resolved. However, the patient is complaining of more pain to his scrotal area with more swelling. The patient denies having any chest pain, shortness of breath or cough. No vomiting or diarrhea. PHYSICAL EXAMINATION: Blood pressure 136/83, pulse of 70, temperature 98.6. He is 98% on room air. GENERAL DESCRIPTION: General description is an elderly male lying in bed in no distress. RESPIRATORY SYSTEM: Unlabored breathing. Clear to auscultation anteriorly. HEART: S1, S2. Regular rate and rhythm. ABDOMEN: Soft. No tenderness. Scrotum is swollen and red. LABS: Urine showing a Gram-negative. White count is slowly trending down. DIAGNOSTIC IMPRESSION AND PLAN: Patient with a complicated urinary tract infection. Urine is showing a Gram-negative, now with concern for possible orchitis. Patient to continue with Rocephin while waiting for the culture to finalize. May benefit from an ultrasound of the scrotal area if pain persists or worsens. Continue supportive care. MMODL / IJN: [id number] /
[2020-12-25] MEDS: LEVOFLOXACIN 750MG-D5W PMX 750 MG in DEXTROSE/WATER 1 150ML.BAG IVPB SCH (20:20)
[2020-12-26] MEDS: ACETAMINOPHEN TAB 325 MG TAB PO PRN ×3 (04:40→20:39)
[2020-12-26] MEDS: SODIUM CHLORIDE 0.9% 1,000 ML IV SCH ×3 (04:41→20:11)
[2020-12-26] MEDS: TAMSULOSIN 0.4 MG CAP.ER.24H PO SCH ×2 (08:34→20:39)
[2020-12-26] MEDS: METHADONE 5 MG TAB PO SCH ×3 (08:34→20:40)
[2020-12-26] MEDS: CALCIUM CARBONATE 500 MG CHEWABLE PO PRN (08:34)
[2020-12-26] MEDS: MEMANTINE 10 MG TAB PO SCH ×2 (08:35→20:40)
[2020-12-26 08:47] LABS: Basophils # (A) 0.1 k/uL (0-0.2); Basophils % (A) 1 %; Eosinophils # (A) 0.2 k/uL (0-0.7); Eosinophils % (A) 2 %; HCT 39.2 % (39.0-53.0); Lymphocytes # (A) 1.6 k/uL (1.0-4.8); Lymphocytes % (A) 15 %; MCH 30.3 pg (25.0-35.0); MCHC 33.2 g/dL (31.0-37.0); MCV 91.2 fL (80.0-100.0); Mean Platelet Volume 7.7; Monocytes # (A) 0.6 k/uL (0-1.0); Monocytes % (A) 6 %; Neutrophils # (A) 7.8 k/uL (1.3-7.7); Neutrophils % (A) 74 %; Platelet Count 272 k/uL (150-450); RDW 13.2 % (11.5-15.5); WBC 10.5 k/uL (3.8-10.6)
[2020-12-26 08:58] LABS: INR 2.6 (<1.2); Prothrombin Time 25.4 sec (9.0-12.0)
--- NOTE | 2020-12-26 10:17 | P.PN ---
Subjective Progress Note Date: 12/26/20 Principal diagnosis: CC: Testicular pain The patient is a 70-year-old male with a PMH of BPH, history of DVT and PE on Coumadin, who presented to the ED w/ complaints of abdominal pain and dysuria. Patient had a Stanley catheter placed in the ED. Patient was started on IV Rocephin. The following day patient developed epididymo-orchitis Patient says that he still has intractable nausea vomiting and is barely able to keep anything down. Patient states that his testicles are still very painful. He has not noticed much improvement since admission. Stanley bag was pinkish color. Objective - Vital Signs Vital signs: Vital Signs Temp 97.7 F 12/26/20 05:00 Pulse 71 12/26/20 05:00 Resp 16 12/26/20 05:00 BP 158/87 12/26/20 05:00 Pulse Ox 96 12/26/20 05:00 Intake & Output 12/25/20 12/26/20 12/26/20 18:59 06:59 18:59 Intake Total 1100 590 Output Total 950 1200 Balance 150 -610 Intake: Oral 1100 590 Output: Urine 950 1200 Uretheral (Stanley) 1200 Other: Voiding Method Indwelling Catheter Indwelling Catheter Indwelling Catheter - Exam General examination - Alert and Oriented 3 in distress due to pain Heart - + S1S2 no murmurs Lungs - Clear to auscultation Abdomen soft NT ND +ve BS : Testicles are erythematous and swollen and tender to palpate Extremities - No edema E [employer] - Moving all 4 extremities spontaneously Psych - Calm and cooperative - Labs CBC & Chem 7: 12/26/20 07:43 12/25/20 05:29 Labs: Abnormal Lab Results - Last 24 Hours (Table) 12/26/20 12/26/20 Range/Units 07:43 07:43 Neutrophils # 7.8 H (1.3-7.7) k/uL PT 25.4 H (9.0-12.0) sec INR 2.6 H (<1.2) Microbiology - Last 24 Hours (Table) 12/23/20 20:05 Blood Culture - Preliminary Blood No Growth after 48 hours 12/23/20 19:50 Blood Culture - Preliminary Blood No Growth after 48 hours 12/23/20 19:41 Urine Culture - Preliminary Urine,Voided Gram Neg Bacilli Assessment and Plan Assessment: #Severe sepsis secondary to UTI/pyelonephritis and epididymo-orchitis #UTI/pyelonephritis #epididymo-orchitis #Hematuria secondary to the above -Continue reocephin as per ID. ID added Levaquin on 12/25/2020 -IV fluids -Urology recommends to treat for at least 10-14 days. -Urine cultures growing gram-negative bacilli -Follow up blood cultures -WBC trending down #Urinary retention -Urology on board -Maintain Stanley catheter -Patient to follow-up with his urologist on discharge #Intractable nausea and vomiting secondary to the above -IV Zofran and symptomatic care. #Lactic acidosis -Normalized with fluids Chronic conditions: DVT/PE -Continue with home meds -Pharmacy to dose Coumadin DVT prophylaxis -Coumadin with therapeutic INR CODE STATUS: Full code Discussed with: patient Anticipated discharge date: 2-[address]: Home
[2020-12-26] MEDS: ONDANSETRON 4 MG/2 ML VIAL IVP PRN (11:19)
[2020-12-26] MEDS: CEFEPIME 2 GM in SODIUM CHLORIDE 0.9% 100 ML IVPB SCH ×2 (15:13→23:40)
[2020-12-26] MEDS ORDERED: WARFARIN 5 MG TAB PO ONE (18:00)
--- NOTE | 2020-12-26 18:51 | PN ---
PROGRESS NOTE DATE OF SERVICE: 12/26/2020 REASON FOR FOLLOWUP: Pseudomonas UTI and epididymal orchitis. INTERVAL HISTORY: Patient is afebrile. He is breathing comfortably. Still complaining of pain and discomfort to the left scrotal area but no worsening. No chest pain, shortness of breath or cough. No abdominal pain or diarrhea. PHYSICAL EXAMINATION: Blood pressure 169/89 with a pulse of 58, temperature 97.9. He is 98% on room air. General description is an elderly male lying in bed in no distress. Respiratory system: Unlabored breathing, clear to auscultation anteriorly. Heart S1, S2. Regular rate and rhythm. Abdomen soft. No tenderness. LAB: Urine has been finalized with Pseudomonas. Hemoglobin is 13.1, white count 10.5. DIAGNOSTIC IMPRESSION AND PLAN: Patient with Pseudomonas urinary tract infection and epididymal orchitis. Patient's antibiotic has been adjusted to cefepime. We will continue to finish therapy with oral Cipro and close outpatient followup. Questions were answered. MMODL / IJN: [id number] /
[2020-12-27] MEDS: ACETAMINOPHEN TAB 325 MG TAB PO PRN (03:52)
[2020-12-27] MEDS: SODIUM CHLORIDE 0.9% 1,000 ML IV SCH ×2 (03:52→15:29)
[2020-12-27] MEDS: ONDANSETRON 4 MG/2 ML VIAL IVP PRN ×2 (04:34→13:02)
[2020-12-27 06:46] LABS: Basophils # (A) 0.1 k/uL (0-0.2); Basophils % (A) 1 %; Eosinophils # (A) 0.3 k/uL (0-0.7); Eosinophils % (A) 3 %; HCT 42.4 % (39.0-53.0); Lymphocytes # (A) 1.5 k/uL (1.0-4.8); Lymphocytes % (A) 15 %; MCH 30.7 pg (25.0-35.0); MCHC 33.1 g/dL (31.0-37.0); MCV 92.8 fL (80.0-100.0); Mean Platelet Volume 7.9; Monocytes # (A) 0.5 k/uL (0-1.0); Monocytes % (A) 5 %; Neutrophils # (A) 7.5 k/uL (1.3-7.7); Neutrophils % (A) 73 %; Platelet Count 208 k/uL (150-450); RBC 4.56 m/uL (4.30-5.90); RDW 13.9 % (11.5-15.5); WBC 10.2 k/uL (3.8-10.6)
[2020-12-27 07:08] LABS: INR 2.9 (<1.2); Prothrombin Time 27.6 sec (9.0-12.0)
[2020-12-27] MEDS: TAMSULOSIN 0.4 MG CAP.ER.24H PO SCH ×2 (08:18→20:14)
[2020-12-27] MEDS: METHADONE 5 MG TAB PO SCH ×3 (08:18→22:07)
[2020-12-27] MEDS: MEMANTINE 10 MG TAB PO SCH ×2 (08:18→20:14)
[2020-12-27] MEDS: CEFEPIME 2 GM in SODIUM CHLORIDE 0.9% 100 ML IVPB SCH ×3 (08:18→23:33)
--- NOTE | 2020-12-27 14:44 | P.PN ---
Subjective Progress Note Date: 12/27/20 Hospital course: Patient is a 70-year-old male with a past medical history of DVT and PE on Coumadin and BPH who presented to the hospital on 12/24/20 with a chief complaint of abdominal pain, dysuria, and hematuria. Patient diagnosed with UTI, pyelonephritis, and epididymo-orchitis. Patient is currently admitted under our services with consultation to infectious disease and urology. Patient currently being treated with IV antibiotics cefepime. Physical exam: Patient seen and fully evaluated at the bedside this morning. He reports significant pain in left testicle and upon assessment moderately swollen, eryth ematous, and very tender to touch. We re-consulted urology to come and reevaluate patient. Patient also complaining of persistent nausea despite use of Zofran. Orders placed for scheduled Compazine in addition to PRN Zofran. Vital signs reviewed and stable. General: Nontoxic, no distress and appears stated age. Derm: Skin warm and dry, normal coloration for ethnicity. Head: Atraumatic, normocephalic and symmetric. Eyes: EOMs intact, no lid lag, and anicteric sclera Mouth: no lip lesions, mucus membranes moist Cardiovascular: regular rate and rhythm with normal S1S2, no murmur, positive posterior tibial pulses bilaterally, and cap refill < 2 seconds. Lungs: Respirations even, regular, and unlabored on room air. Lungs CTA bilaterally, no rhonchi, no rales, no wheezing, and no accessory muscle usage. GI/: Abdomen soft, nontender to palpation, no guarding, no appreciable organ omegaly. Stanley catheter in place. Left testicle significantly swollen, erythematous and tender to touch. Right testicle mildly swollen, erythematous, and tender to touch. Ext: ROM intact. No gross muscle atrophy, no edema, no contractures Neuro: Speech clear, face symmetrical and CN II-XII grossly intact with no noted focal neuro deficits Psych: Alert and oriented to person, place, time, and situation. Appropriate and pleasant affect. Assessment and Plan of Care: Severe sepsis secondary to UTI/pyelonephritis and epididymo-orchitis UTI/pyelonephritis Epididymo-orchitis Hematuria secondary to the above -Continue IV antibiotics: Cefepime -Infectious disease following, appreciate further recommendations -Urology recommends treatment for at least 10-14 days. -Urine cultures positive for pseudomonas aeruginosa -Blood cultures showing no growth after 72 hours -Leukocytosis, resolved Urinary retention -Urology on board -Maintain Stanley catheter -Patient to follow-up with his urologist upon discharge Intractable nausea and vomiting secondary to the above -Patient continues to have persistent nausea despite use of IV Zofran. Orders placed for scheduled Compazine and patient to continue when necessary Zofran as needed for breakthrough nausea and vomiting. Lactic acidosis, resolved -Normalized after fluids History of DVT/PE -Pharmacy to dose Coumadin. -INR therapeutic at 2.9. CODE STATUS: DO NOT RESUSCITATE/DO NOT INTUBATE DVT prophylaxis: Warfarin Discussed with: Patient and RN Anticipated discharge date: Clinical course to determine Anticipated discharge place: Home A total of 45 minutes was spent on the care of this complex patient more than 50% of the time was spent in counseling and care coordination. Objective - Vital Signs Vital signs: Vital Signs Temp 97.5 F L 12/27/20 05:34 Pulse 71 12/27/20 05:34 Resp 16 12/27/20 05:34 BP 182/96 12/27/20 05:34 Pulse Ox 96 12/27/20 05:34 Intake & Output 12/26/20 12/27/20 12/27/20 18:59 06:59 18:59 Intake Total 1800 Output Total 1500 1800 Balance -1500 0 Intake: Intake, IV Titration 1600 Amount Cefepime 2 gm In Sodium 100 Chloride 0.9% 100 ml @ 25 mls/hr IVPB Q8HR ELINA Rx# :[id number] Sodium Chloride 0.9% 1, 1500 000 ml @ 130 mls/hr IV . [id number] ELINA Rx#:[id number] Oral 200 Output: Urine 1500 1800 Other: Voiding Method Indwelling Catheter Indwelling Catheter - Labs CBC & Chem 7: 12/27/20 06:22 12/25/20 05:29 Labs: Abnormal Lab Results - Last 24 Hours (Table) 12/26/20 12/26/20 12/27/20 Range/Units 07:43 07:43 06:22 Neutrophils # 7.8 H (1.3-7.7) k/uL PT 25.4 H 27.6 H (9.0-12.0) sec INR 2.6 H 2.9 H (<1.2) Microbiology - Last 24 Hours (Table) 12/23/20 19:50 Blood Culture - Preliminary Blood No Growth after 72 hours 12/23/20 20:05 Blood Culture - Preliminary Blood No Growth after 72 hours 12/23/20 19:41 Urine Culture - Final Urine,Voided Pseudomonas aeruginosa
[2020-12-27] MEDS: PROCHLORPERAZINE INJ 10 MG/2 ML VIAL IVP SCH ×2 (15:34→20:14)
[2020-12-27] MEDS: MORPHINE SULFATE 4 MG/ML SYRINGE IV PRN (16:44)
[2020-12-27] MEDS ORDERED: WARFARIN 2 MG TAB PO ONE (18:00)
--- NOTE | 2020-12-27 19:55 | PN ---
PROGRESS NOTE DATE OF SERVICE: 12/27/2020 REASON FOR FOLLOWUP: Pseudomonas urinary tract infection with epididymo-orchitis. INTERVAL HISTORY: The patient is afebrile. The patient is still complaining of not feeling that good. No chest pain, shortness of breath or cough. No abdominal pain. Still has pain to the scrotal area, though slightly decreased in intensity. PHYSICAL EXAMINATION: On examination, blood pressure 150/85, pulse of 77, temperature 97.5. He is 97% on room air. GENERAL DESCRIPTION: General description is an elderly male up in the chair in no distress. RESPIRATORY SYSTEM: Unlabored breathing. Clear to auscultation anteriorly. HEART: S1, S2. Regular rate and rhythm. ABDOMEN: Soft. No tenderness. Scrotal swelling persists. Redness has decreased. LABS: Hemoglobin is 14, white count of 10.2. INR is 2.9. DIAGNOSTIC IMPRESSION AND PLAN: Patient with a pseudomonas urinary tract infection with epididymo-orchitis, on cefepime with overall improvement. The patient can be transitioned to oral Cipro on discharge. However, his INR needs to be monitored closely while on antibiotics and continue with supportive care. MMODL / IJN: [id number] /
[2020-12-28] MEDS: MORPHINE SULFATE 4 MG/ML SYRINGE IV PRN ×4 (02:53→17:27)
[2020-12-28] MEDS: PROCHLORPERAZINE INJ 10 MG/2 ML VIAL IVP SCH ×4 (02:53→21:24)
[2020-12-28 05:44] LABS: INR 2.6 (<1.2); Prothrombin Time 25.3 sec (9.0-12.0)
[2020-12-28] MEDS: METHADONE 5 MG TAB PO SCH ×3 (08:08→21:24)
[2020-12-28] MEDS: TAMSULOSIN 0.4 MG CAP.ER.24H PO SCH ×2 (08:08→21:24)
[2020-12-28] MEDS: CEFEPIME 2 GM in SODIUM CHLORIDE 0.9% 100 ML IVPB SCH ×3 (08:09→23:47)
[2020-12-28] MEDS: MEMANTINE 10 MG TAB PO SCH ×2 (08:09→21:24)
--- NOTE | 2020-12-28 09:22 | P.PN ---
<Jori Lopez - Last Filed: 12/28/20 13:28> Subjective Progress Note Date: 12/28/20 Hospital course: Patient is a 70-year-old male with a past medical history of DVT and PE on Cou madin and BPH who presented to the hospital on 12/24/20 with a chief complaint of abdominal pain, dysuria, and hematuria. Patient diagnosed with UTI, pyelonephritis, and epididymo-orchitis. Patient is currently admitted under our services with consultation to infectious disease and urology. Patient currently being treated with IV antibiotics cefepime. Physical exam: Patient seen and fully evaluated at the bedside this morning. He reports significant pain in left testicle and upon assessment moderately swollen, erythematous, and very tender to touch. We re-consulted urology to come and reevaluate patient. Patient also complaining of persistent nausea despite use of Zofran. Orders placed for scheduled Compazine in addition to PRN Zofran. Vital signs reviewed and stable. General: Nontoxic, no distress and appears stated age. Derm: Skin warm and dry, normal coloration for ethnicity. Head: Atraumatic, normocephalic and symmetric. Eyes: EOMs intact, no lid lag, and anicteric sclera Mouth: no lip lesions, mucus membranes moist Cardiovascular: regular rate and rhythm with normal S1S2, no murmur, positive posterior tibial pulses bilaterally, and cap refill < 2 seconds. Lungs: Respirations even, regular, and unlabored on room air. Lungs CTA bilaterally, no rhonchi, no rales, no wheezing, and no accessory muscle usage. GI/: Abdomen soft, nontender to palpation, no guarding, no appreciable organomegaly. Stanley catheter in place. Left testicle significantly swollen, erythematous and tender to touch. Right testicle mildly swollen, erythematous, and tender to touch. Ext: ROM intact. No gross muscle atrophy, no edema, no contractures Neuro: Speech clear, face symmetrical and CN II-XII grossly intact with no noted focal neuro deficits Psych: Alert and oriented to person, place, time, and situation. Appropriate and pleasant affect. Assessment and Plan of Care: Severe sepsis secondary to UTI/pyelonephritis and epididymo-orchitis UTI/pyelonephritis Epididymo-orchitis Hematuria secondary to the above -Continue IV antibiotics: Cefepime -Infectious disease following, appreciate further recommendations -Urology recommends treatment for at least 10-14 days. -Urine cultures positive for pseudomonas aeruginosa -Blood cultures showing no growth after 96 hours -Leukocytosis, resolved -Scrotal ultrasound being completed. Urinary retention -Urology on board -Maintain Stanley catheter -Patient to follow-up with his urologist upon discharge Intractable nausea and vomiting secondary to the above -Continue with scheduled Compazine along with PRN Zofran as needed for joann akthrough nausea and vomiting. Bilateral arm pain -Patient reports inability to lift arms secondary to pain beginning just above elbow and radiating down the anterior surface of forearm, possibly secondary to ulnar nerve impingement vs other. -Patient does have history of cervical spinal fusion, currently denies having any pain or decreased range of motion with neck, however CT cervical spine to be completed to rule out possible infectious process. Lactic acidosis, resolved -Normalized after fluids History of DVT/PE -Pharmacy to dose Coumadin. -INR therapeutic at 2.6. CODE STATUS: DO NOT RESUSCITATE/DO NOT INTUBATE DVT prophylaxis: Warfarin Discussed with: Patient, Patient's daughter and RN Anticipated discharge date: Clinical course to determine Anticipated discharge place: Home A total of 45 minutes was spent on the care of this complex patient more than 50% of the time was spent in counseling and care coordination. Objective - Vital Signs Vital signs: Vital Signs Temp 97.8 F 12/28/20 04:42 Pulse 85 12/28/20 04:42 Resp 16 12/28/20 04:42 BP 158/91 12/28/20 04:42 Pulse Ox 92 L 12/28/20 04:42 Intake & Output 12/27/20 12/28/20 12/28/20 18:59 06:59 18:59 Output Total 1300 800 Balance -1300 -800 Output: Urine 1300 800 Other: Voiding Method Indwelling Catheter Indwelling Catheter - Labs CBC & Chem 7: 12/28/20 04:48 12/28/20 04:48 Labs: Abnormal Lab Results - Last 24 Hours (Table) 12/28/20 Range/Units 04:48 PT 25.3 H (9.0-12.0) sec INR 2.6 H (<1.2) Microbiology - Last 24 Hours (Table) 12/23/20 19:50 Blood Culture - Preliminary Blood No Growth after 96 hours 12/23/20 20:05 Blood Culture - Preliminary Blood No Growth after 96 hours <Romelia French - Last Filed: 12/28/20 19:52> Subjective Patient seen and examined independently. Patient was also seen by Jori Lopez NP and case was discussed. I am in agreement with subjective, physical exam, assessment and plan as written above and amended below. Discussed with patient's daughter at bedside. He states he woke at 4:30 in the morning with bilateral elbow pain. He denies any numbness or tingling. He reports some weakness. On physical exam this is more consistent with give way weakness secondary to pain. Patient does have a history of a cervical fusion with metal in his neck. We'll proceed with stat CT cervical and thoracic spine (reviewed and no signs of infection). If this is negative will give steroids for possible ulnar entrapment syndrome. 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 We'll also increase methadone dosing to 7.5 3 times a day. General: non toxic, [moderate distress secondary to pain, appears at stated age Derm: warm, dry Head: atraumatic, normocephalic, symmetric Eyes: EOMI, no lid lag, anicteric sclera Mouth: no lip lesion, mucus membranes moist Cardiovascular: S1S2 reg, no murmur, positive posterior tibial pulse bilateral, Lungs: CTA bilateral, no rhonchi, no rales , no accessory muscle use Abdominal: soft, nontender to palpation, no guarding, no appreciable organomega ly Ext: no gross muscle atrophy, trace edema, no contractures Neuro: CN II-XI grossly intact, no focal neuro deficits no pain to palpation over the spinous processes of cervical and thoracic spine, limited range of motion secondary to pain, patient is able to lift arms against resistance bilaterally, light touch intact and equal bilateral upper extremities. Psych: Alert, oriented, appropriate affect Objective - Vital Signs Vital signs: Vital Signs Temp 97.6 F 12/28/20 11:36 Pulse 89 12/28/20 11:36 Resp 18 12/28/20 11:36 BP 165/77 12/28/20 11:36 Pulse Ox 91 L 12/28/20 11:36 Intake & Output 12/28/20 12/28/20 12/29/20 06:59 18:59 06:59 Intake Total 600 Output Total 800 1500 Balance -800 -900 Weight 96.162 kg Intake: IV 600 0.9 600 Output: Urine 800 1500 Straight 450 Other: Voiding Method Indwelling Catheter Indwelling Catheter - Labs CBC & Chem 7: 12/28/20 04:48 12/28/20 04:48 Labs: Abnormal Lab Results - Last 24 Hours (Table) 12/28/20 12/28/20 12/28/20 Range/Units 04:48 04:48 04:48 WBC 12.8 H (3.8-10.6) k/uL Neutrophils # 9.4 H (1.3-7.7) k/uL PT 25.3 H (9.0-12.0) sec INR 2.6 H (<1.2) Potassium 3.3 L (3.5-5.1) mmol/L BUN 7 L (9-20) mg/dL Creatinine 0.55 L (0.66-1.25) mg/dL Glucose 100 H (74-99) mg/dL Creatine Kinase (55-170) U/L Albumin 3.3 L (3.5-5.0) g/dL 12/28/20 Range/Units 04:48 WBC (3.8-10.6) k/uL Neutrophils # (1.3-7.7) k/uL PT (9.0-12.0) sec INR (<1.2) Potassium (3.5-5.1) mmol/L BUN (9-20) mg/dL Creatinine (0.66-1.25) mg/dL Glucose (74-99) mg/dL Creatine Kinase 21 L (55-170) U/L Albumin (3.5-5.0) g/dL Microbiology - Last 24 Hours (Table) 12/23/20 19:50 Blood Culture - Preliminary Blood No Growth after 96 hours 12/23/20 20:05 Blood Culture - Preliminary Blood No Growth after 96 hours
[2020-12-28 09:49] LABS: Basophils # (A) 0.1 k/uL (0-0.2); Basophils % (A) 1 %; Eosinophils # (A) 0.3 k/uL (0-0.7); Eosinophils % (A) 2 %; HCT 42.7 % (39.0-53.0); HGB 14.3 gm/dL (13.0-17.5); Lymphocytes # (A) 1.8 k/uL (1.0-4.8); Lymphocytes % (A) 14 %; MCH 30.9 pg (25.0-35.0); MCHC 33.5 g/dL (31.0-37.0); MCV 92.3 fL (80.0-100.0); Mean Platelet Volume 8.1; Monocytes # (A) 0.9 k/uL (0-1.0); Monocytes % (A) 7 %; Neutrophils # (A) 9.4 k/uL (1.3-7.7); Neutrophils % (A) 74 %; Platelet Count 297 k/uL (150-450); RBC 4.63 m/uL (4.30-5.90); RDW 13.8 % (11.5-15.5); WBC 12.8 k/uL (3.8-10.6)
[2020-12-28 10:00] LABS: ALT 28 U/L (4-49); AST 39 U/L (17-59); African American GFR (CKD) >90 (>60 ml/min/1.73 sqM); Albumin 3.3 g/dL (3.5-5.0); Albumin/Globulin Ratio 1.1; Alkaline Phosphatase 91 U/L (38-126); Anion Gap 11 mmol/L; Blood Urea Nitrogen 7 mg/dL (9-20); Calcium 9.1 mg/dL (8.4-10.2); Carbon Dioxide 23 mmol/L (22-30); Chloride 103 mmol/L (98-107); Globulin 3.1 g/dL; Glucose 100 mg/dL (74-99); Non-African American GFR(CKD) >90 (>60 ml/min/1.73 sqM); Potassium 3.3 mmol/L (3.5-5.1); Sodium 137 mmol/L (137-145); Total Bilirubin 0.7 mg/dL (0.2-1.3); Total Protein 6.4 g/dL (6.3-8.2); Uric Acid 4.9 mg/dL (3.5-8.5)
[2020-12-28] MEDS ORDERED: HYDROmorphone 1 MG/ML 1 ML SYRINGE IVP STA (10:36)
--- NOTE | 2020-12-28 11:26 | P.PN ---
Subjective Progress Note Date: 12/28/20 Still having pain in the left testicle, indicates mild improvement in pain, minimal improvement in swelling. Denies any fever/chills. Objective - Vital Signs Vital signs: Vital Signs Temp 97.8 F 12/28/20 04:42 Pulse 85 12/28/20 04:42 Resp 16 12/28/20 04:42 BP 158/91 12/28/20 04:42 Pulse Ox 92 L 12/28/20 04:42 Intake & Output 12/27/20 12/28/20 12/28/20 18:59 06:59 18:59 Output Total 1300 800 Balance -1300 -800 Output: Urine 1300 800 Other: Voiding Method Indwelling Catheter Indwelling Catheter Indwelling Catheter - Constitutional General appearance: Present: mild distress - Gastrointestinal General gastrointestinal: Present: soft. Absent: distended, tenderness - Genitourinary Genitourinary Comment(s): Caputo in place draining clear yellow urine. Left testicle indurated, swollen. No evidence of scrotal abscess - Labs CBC & Chem 7: 12/28/20 04:48 12/28/20 04:48 Labs: Abnormal Lab Results - Last 24 Hours (Table) 12/28/20 12/28/20 12/28/20 Range/Units 04:48 04:48 04:48 WBC 12.8 H (3.8-10.6) k/uL Neutrophils # 9.4 H (1.3-7.7) k/uL PT 25.3 H (9.0-12.0) sec INR 2.6 H (<1.2) Potassium 3.3 L (3.5-5.1) mmol/L BUN 7 L (9-20) mg/dL Creatinine 0.55 L (0.66-1.25) mg/dL Glucose 100 H (74-99) mg/dL Albumin 3.3 L (3.5-5.0) g/dL Microbiology - Last 24 Hours (Table) 12/23/20 19:50 Blood Culture - Preliminary Blood No Growth after 96 hours 12/23/20 20:05 Blood Culture - Preliminary Blood No Growth after 96 hours Assessment and Plan Assessment: The patient has urinary retention and has failed conservative therapy. TURP is contraindicated due to his requirement for anticoagulation. Has caputo for managment of his urinary retention for now. Admitted with UTI and left orchitis. On exam no abscess identified, mild improvement in his symptoms -Will obtain scrotal U/S to role out any intratesticular abscess. - He should be treated with a 10-14 day course of antibiotics to treat the orchitis, he is on Cefepime for pseudomonas UTI. ID is onboard -Keep scrotum elevated -Will reassess tomorrow .
[2020-12-28] MEDS ORDERED: RX INFO: IV CONTRAST WAS GIVEN 1 EACH MISC MISCELLANE PRN (12:20)
--- NOTE | 2020-12-28 13:08 | US ---
EXAMINATION TYPE: US scrotum with doppler. Grayscale and color Doppler Duplex imaging performed of t marlin scrotum. DATE OF EXAM: 12/28/2020 COMPARISON: CT abdomen and pelvis 5 days ago CLINICAL HISTORY: Left orchitis . Left-sided pain. Exam done portable. EXAM MEASUREMENTS: TESTICLES: Right Testicle: 4.5 x 2.5 x 3.2 cm, mildly heterogeneous Left Testicle: 3.7 x 2.7 x 2.9 cm, mildly heterogeneous EPIDIDYMIS HEAD: Right Epididymis: 1.4 cm Left Epididymis: 1.8 cm Doppler performed to assess for testicular vascularity; good bilateral color flow and waveforms are s een. Presence of hydroceles: no Presence of varicoceles: no Enlarged and hypervascular left epididymis Edematous change of bilateral testicles and overlying dermis. IMPRESSION: Symmetric Scrotal and testicular edematous change with focal left-sided epididymitis thou ght Present.
--- NOTE | 2020-12-28 14:45 | CT ---
EXAMINATION TYPE: CT CervThoracic spine w con DATE OF EXAM: 12/28/2020 COMPARISON: None HISTORY: 70-year-old male Bilateral arm weakness, history of fusion. TECHNIQUE: Contiguous axial scanning of the cervical and thoracic spine performed with IV Contrast, p atient injected with 100 mL of Isovue M300. Coronal/sagittal reconstructions performed. CT DLP: 1556 mGycm Automated exposure control for dose reduction was used. FINDINGS: CERVICAL SPINE: No craniocervical junction abnormality, predental space widening, or prevertebral soft tissue swellin g. Degenerative changes at the C1 dens articulation. Reversal of the normal cervical lordosis but with preserved alignment. No acute fracture of the cervical spine. Advanced hypertrophic facet arthropathy towards the left in the upper cervical spine. Post surgical change of C5-C7 ACDF. No evident canal compromise by CT. Changes result in moderate to severe left neuroforaminal stenosis at C3-C4 and mild to moderate on ashlee th sides at C5-C6. Mild on the left at C2-C3. Possible foreign bodies or thickened cerumen measuring 7 mm in the left external auditory canal. THORACIC SPINE: There is moderately advanced centrilobular emphysema. Biapical pleural-parenchymal scarring. Low-atte nuation hepatic parenchyma suggesting fatty infiltration Imaging only extends down to the T10 level. Alignment is maintained. No acute fracture identified. Ve rtebral body heights are preserved. By CT, no evident canal compromise. On the right at T1-T2 and T2-T3, there is mild neuroforaminal stenosis. IMPRESSION: CERVICAL SPINE: 1. REVERSAL OF THE NORMAL CERVICAL LORDOSIS. PRESERVED ALIGNMENT. NO PREVERTEBRAL SOFT TISSUE SWELLIN G OR ACUTE FRACTURE. 2. STATUS POST C5-C7 ACDF. NO EVIDENT HARDWARE COMPLICATION. 3. RESIDUAL SPONDYLOTIC CHANGE CONTRIBUTES TO A MODERATE TO SEVERE LEFT NEUROFORAMINAL STENOSIS AT C3 -C4 AND MILD TO MODERATE ON BOTH SIDES AT C5-C6. THORACIC SPINE: 4. NO VERTEBRAL COMPRESSION COLLAPSE OR MALALIGNMENT. 5. MILD RIGHT NEURAL FORAMINAL STENOSIS AT T1-T2 AND T2-T3. 6. NOTE THAT IMAGING ONLY EXTENDS DOWN THROUGH THE T10 LEVEL. 7. INCIDENTAL MODERATE TO ADVANCED CENTRILOBULAR EMPHYSEMA.
[2020-12-28] MEDS ORDERED: WARFARIN 5 MG TAB PO ONE (18:00)
[2020-12-28] MEDS ORDERED: methylPREDNISolone SOD SUCCI 40 MG/ML 1 ML VIAL IV STA (19:50)
--- NOTE | 2020-12-28 19:53 | PN ---
PROGRESS NOTE DATE OF SERVICE: 12/28/2020 REASON FOR FOLLOWUP: Pseudomonas UTI and epididymal orchitis. INTERVAL HISTORY: The patient is currently afebrile. The patient is breathing comfortably. Still complaining of pain discomfort to the scrotal area, but decreased intensity. No chest pain or cough. No abdominal pain, no diarrhea. PHYSICAL EXAMINATION: Blood pressure 155/77, pulse of 89, temperature is 97.6. He is 91% on room air. General description is an elderly male lying in bed in no distress. Respiratory system: Unlabored breathing, clear to auscultation anteriorly. Heart S1, S2. Regular rate and rhythm. Abdomen soft, no tenderness. Scrotal swelling and redness slightly decreased. LABS: Hemoglobin is 14.8, white count 12.6, BUN of 7, creatinine 0.55. DIAGNOSTIC IMPRESSION AND PLAN: Patient with Pseudomonas UTI and concerning for the epididymal orchitis. On ultrasound no evidence of any torsion. The patient is covered with cefepime, to continue while monitoring his clinical course closely. Continue supportive care. MMODL / IJN: [id number] /
[2020-12-29] MEDS: PROCHLORPERAZINE INJ 10 MG/2 ML VIAL IVP SCH ×4 (02:20→20:20)
[2020-12-29] MEDS: MORPHINE SULFATE 4 MG/ML SYRINGE IV PRN (06:06)
[2020-12-29 07:28] LABS: INR 2.2 (<1.2); Prothrombin Time 21.6 sec (9.0-12.0)
[2020-12-29] MEDS: methylPREDNISolone SOD SUCCI 40 MG/ML 1 ML VIAL IV SCH ×2 (08:20→20:20)
[2020-12-29] MEDS: MEMANTINE 10 MG TAB PO SCH ×2 (08:21→20:19)
[2020-12-29] MEDS: METHADONE 5 MG TAB PO SCH ×3 (08:21→21:43)
[2020-12-29] MEDS: TAMSULOSIN 0.4 MG CAP.ER.24H PO SCH ×2 (08:21→20:19)
[2020-12-29] MEDS: CEFEPIME 2 GM in SODIUM CHLORIDE 0.9% 100 ML IVPB SCH ×3 (08:22→23:31)
[2020-12-29 10:13] LABS: HCT 45.8 % (39.0-53.0); HGB 15.2 gm/dL (13.0-17.5); MCH 30.7 pg (25.0-35.0); MCHC 33.1 g/dL (31.0-37.0); MCV 92.6 fL (80.0-100.0); Mean Platelet Volume 7.6; Platelet Count 306 k/uL (150-450); RBC 4.94 m/uL (4.30-5.90); RDW 14.4 % (11.5-15.5); WBC 13.1 k/uL (3.8-10.6)
[2020-12-29 10:29] LABS: African American GFR (CKD) >90 (>60 ml/min/1.73 sqM); Anion Gap 10 mmol/L; Blood Urea Nitrogen 11 mg/dL (9-20); Calcium 9.8 mg/dL (8.4-10.2); Carbon Dioxide 25 mmol/L (22-30); Chloride 103 mmol/L (98-107); Glucose 169 mg/dL (74-99); Non-African American GFR(CKD) >90 (>60 ml/min/1.73 sqM); Potassium 3.9 mmol/L (3.5-5.1); Sodium 138 mmol/L (137-145)
--- NOTE | 2020-12-29 14:01 | P.PN ---
Subjective Progress Note Date: 12/29/20 testicular pain is improving, swelling is unchanged. Denies any fever or chill Objective - Vital Signs Vital signs: Vital Signs Temp 98 F 12/29/20 11:53 Pulse 66 12/29/20 11:53 Resp 18 12/29/20 11:53 BP 151/89 12/29/20 11:53 Pulse Ox 92 L 12/29/20 11:53 Intake & Output 12/28/20 12/29/20 12/29/20 18:59 06:59 18:59 Intake Total 600 500 180 Output Total 1500 700 Balance -900 -200 180 Weight 96.162 kg Intake: IV 600 0.9 600 Oral 500 180 Output: Urine 1500 700 Straight 450 Other: Voiding Method Indwelling Catheter Indwelling Catheter Indwelling Catheter - Constitutional General appearance: Present: no acute distress - Genitourinary Genitourinary Comment(s): left testicle tender to touch, improved compared to yesterday. no fluctuance appreciated, - Labs CBC & Chem 7: 12/29/20 09:24 12/29/20 09:24 Labs: Abnormal Lab Results - Last 24 Hours (Table) 12/29/20 12/29/20 12/29/20 Range/Units 05:34 09:24 09:24 WBC 13.1 H (3.8-10.6) k/uL PT 21.6 H (9.0-12.0) sec INR 2.2 H (<1.2) Creatinine 0.46 L (0.66-1.25) mg/dL Glucose 169 H (74-99) mg/dL Microbiology - Last 24 Hours (Table) 12/23/20 19:50 Blood Culture - Preliminary Blood No Growth after 120 hours 12/23/20 20:05 Blood Culture - Preliminary Blood No Growth after 120 hours Assessment and Plan Assessment: The patient has urinary retention and has failed conservative therapy. TURP is contraindicated due to his requirement for anticoagulation. Has caputo for managment of his urinary retention for now. Admitted with UTI and left orchitis. On exam no abscess identified, tenderness improving. Scrotal ultrasound showed no intratesticular abscess. - He should be treated with a 10-14 day course of antibiotics to treat the orchitis, he is on Cefepime for pseudomonas UTI. ID is onboard -Keep scrotum elevated .
--- NOTE | 2020-12-29 16:27 | P.PN ---
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 Patient diagnosed with UTI, pyelonephritis, and epididymo-orchitis. Patient is currently admitted under our services with consultation to infectious disease and urology. Patient currently being treated with IV antibiotics cefepime. Physical exam: Patient seen and fully evaluated at the bedside this morning. Patient appears to be doing much better this morning. Swelling and erythema of left testicle improving and patient reports improvement in pain as well. Bilateral arm pain also improving and believed to be secondary to ulnar nerve impingement syndrome resulting from immobility. Patient was able to get up and walk with PT and use arms without difficulty after encouragement. Patient denies having any headache, lightheadedness, dizziness, chest pain or palpitations, shortness of breath, abdominal pain, nausea, vomiting, or any other complaints at this time. Patient awaiting placement in SNF. Plan for discharge to SNF for rehab tomorrow. Vital signs reviewed and stable. General: Nontoxic, no distress and appears stated age. Derm: Skin warm and dry, normal coloration for ethnicity. Head: Atraumatic, normocephalic and symmetric. Eyes: EOMs intact, no lid lag, and anicteric sclera Mouth: no lip lesions, mucus membranes moist Cardiovascular: regular rate and rhythm with normal S1S2, no murmur, positive posterior tibial pulses bilaterally, and cap refill < 2 seconds. Lungs: Respirations even, regular, and unlabored on room air. Lungs CTA bilaterally, no rhonchi, no rales, no wheezing, and no accessory muscle usage. GI/: Abdomen soft, nontender to palpation, no guarding, no appreciable organomegaly. Stanley catheter in place. Left testicle swelling is improving and patient reports less tender to touch. Ext: ROM intact. No gross muscle atrophy, no edema, no contractures Neuro: Speech clear, face symmetrical and CN II-XII grossly intact with no noted focal neuro deficits Psych: Alert and oriented to person, place, time, and situation. Appropriate and pleasant affect. Assessment and Plan of Care: Severe sepsis secondary to UTI/pyelonephritis and epididymo-orchitis UTI/pyelonephritis Epididymo-orchitis Hematuria secondary to the above -Continue IV antibiotics: Cefepime -Infectious disease following, appreciate further recommendations -Urology recommends treatment for at least 10-14 days. -Urine cultures positive for pseudomonas aeruginosa -Blood cultures showing no growth after 96 hours -Leukocytosis, resolved -Scrotal ultrasound being completed. Urinary retention -Urology on board -Maintain Stanley catheter -Patient to follow-up with his urologist upon discharge Intractable nausea and vomiting secondary to the above -Continue with scheduled Compazine along with PRN Zofran as needed for breakthrough nausea and vomiting. Bilateral arm pain, Believed to be secondary to ulnar nerve impingement syndrome resulting from immobility, has improved -CT cervical and thoracic region revealing no acute fractures or malalignment. It did reveal moderate to severe left neuroforaminal stenosis at C3 through C4 and mild to moderate on both sides at C5 through C6 along with mild right neuro foraminal stenosis at T1 through T2 and T2 through T3. -Patient does have history of cervical spinal fusion, currently denies having any pain or decreased range of motion with neck, however CT cervical spine to be completed to rule out possible infectious process. Lactic acidosis, resolved -Normalized after fluids History of DVT/PE -Pharmacy to dose Coumadin. -INR therapeutic at 2.2. CODE STATUS: DO NOT RESUSCITATE/DO NOT INTUBATE DVT prophylaxis: Warfarin Discussed with: Patient and RN Anticipated discharge date: Likely tomorrow Anticipated discharge place: [facility] A total of 45 minutes was spent on the care of this complex patient more than 50% of the time was spent in counseling and care coordination. Objective - Vital Signs Vital signs: Vital Signs Temp 97.9 F 12/29/20 05:00 Pulse 54 L 12/29/20 05:00 Resp 18 12/29/20 05:00 BP 119/75 12/29/20 05:00 Pulse Ox 91 L 12/29/20 05:00 Intake & Output 12/28/20 12/29/20 12/29/20 18:59 06:59 18:59 Intake Total 600 500 Output Total 1500 700 Balance -900 -200 Weight 96.162 kg Intake: IV 600 0.9 600 Oral 500 Output: Urine 1500 700 Straight 450 Other: Voiding Method Indwelling Catheter Indwelling Catheter Indwelling Catheter - Labs CBC & Chem 7: 12/29/20 09:24 12/29/20 09:24 Labs: Abnormal Lab Results - Last 24 Hours (Table) 12/28/20 12/29/20 12/29/20 Range/Units 04:48 05:34 09:24 WBC 13.1 H (3.8-10.6) k/uL PT 21.6 H (9.0-12.0) sec INR 2.2 H (<1.2) Creatinine (0.66-1.25) mg/dL Glucose (74-99) mg/dL Creatine Kinase 21 L (55-170) U/L 12/29/20 Range/Units 09:24 WBC (3.8-10.6) k/uL PT (9.0-12.0) sec INR (<1.2) Creatinine 0.46 L (0.66-1.25) mg/dL Glucose 169 H (74-99) mg/dL Creatine Kinase (55-170) U/L Microbiology - Last 24 Hours (Table) 12/23/20 19:50 Blood Culture - Preliminary Blood No Growth after 120 hours 12/23/20 20:05 Blood Culture - Preliminary Blood No Growth after 120 hours <Romelia French - Last Filed: 12/29/20 20:25> Subjective Patient seen and examined independently. Patient was also seen by Jori Lopez NP and case was discussed. I am in agreement with subjective, physical exam, assessment and plan as written above and amended below. Patient is in his elbows is better today, he is able to move better. He thinks his steroids are helping. He reports that his swelling is testicle is less. Bilateral elbow pain likely secondary to ulnar nerve impingement -Continue with steroid therapy -Leukocytosis likely increasing secondary to steroids. General: non toxic, no distress, appears at stated age Derm: warm, dry Head: atraumatic, normocephalic, symmetric Eyes: EOMI, no lid lag, anicteric sclera Mouth: no lip lesion, mucus membranes moist Cardiovascular: S1S2 reg, no murmur, positive posterior tibial pulse bilateral, Lungs: CTA bilateral, no rhonchi, no rales , no accessory muscle use Abdominal: soft, nontender to palpation, no guarding, no appreciable organome hilario Ext: no gross muscle atrophy, no edema, no contractures, pain over palpation of the right ulnar tunnel, no pain to palpation of the left ulnar tunnel. Muscle strength is limited secondary to pain but patient is able to lift his arms to 90 on both sides. Light touch is intact bilaterally. Neuro: CN II-XI grossly intact, no focal neuro deficits Psych: Alert, oriented, appropriate affect Objective - Vital Signs Vital signs: Vital Signs Temp 98 F 12/29/20 11:53 Pulse 66 12/29/20 11:53 Resp 18 12/29/20 11:53 BP 151/89 12/29/20 11:53 Pulse Ox 92 L 12/29/20 11:53 Intake & Output 12/29/20 12/29/20 12/30/20 06:59 18:59 06:59 Intake Total 500 180 Output Total 700 600 Balance -200 180 -600 Intake: Oral 500 180 Output: Urine 700 600 Other: Voiding Method Indwelling Catheter Indwelling Catheter - Labs CBC & Chem 7: 12/29/20 09:24 12/29/20 09:24 Labs: Abnormal Lab Results - Last 24 Hours (Table) 12/29/20 12/29/20 12/29/20 Range/Units 05:34 09:24 09:24 WBC 13.1 H (3.8-10.6) k/uL PT 21.6 H (9.0-12.0) sec INR 2.2 H (<1.2) Creatinine 0.46 L (0.66-1.25) mg/dL Glucose 169 H (74-99) mg/dL Microbiology - Last 24 Hours (Table) 12/23/20 19:50 Blood Culture - Preliminary Blood No Growth after 120 hours 12/23/20 20:05 Blood Culture - Preliminary Blood No Growth after 120 hours
--- NOTE | 2020-12-29 16:46 | PN ---
PROGRESS NOTE DATE OF SERVICE: 12/29/2020. REASON FOR FOLLOWUP: Pseudomonas urinary tract infection with epididymoorchitis. INTERVAL HISTORY: The patient is afebrile. The patient did mention overall decrease in pain and discomfort to the scrotal area. Still complaining of pain to bilateral upper extremity. No chest pain, shortness of breath or cough. No abdominal pain. No diarrhea. PHYSICAL EXAMINATION: Blood pressure 151/89 with a pulse of 73, temperature 98. He is 92% on room air. General description: The patient is an elderly male lying in bed in no distress. Respiratory system: Unlabored breathing, clear to auscultation anteriorly. Heart: S1, S2. Regular rate and rhythm. Abdomen: Soft. No tenderness. Scrotal swelling and redness has decreased. LABS: Hemoglobin is 15.2, white count 15.1, with BUN of 11, creatinine 0.46. Blood culture has been negative. DIAGNOSTIC IMPRESSION AND PLAN: Patient with Pseudomonas urinary tract infection with epididymoorchitis. Finish therapy with oral Cipro at least 2 weeks and close outpatient followup. MMODL / IJN: [id number] / DRU
[2020-12-29] MEDS ORDERED: WARFARIN 5 MG TAB PO ONE (18:00)
[2020-12-30] MEDS: PROCHLORPERAZINE INJ 10 MG/2 ML VIAL IVP SCH ×3 (04:07→16:11)
[2020-12-30 08:10] LABS: INR 2.3 (<1.2)
[2020-12-30] MEDS: methylPREDNISolone SOD SUCCI 40 MG/ML 1 ML VIAL IV SCH (08:20)
[2020-12-30] MEDS: METHADONE 5 MG TAB PO SCH ×2 (08:20→16:15)
[2020-12-30] MEDS: TAMSULOSIN 0.4 MG CAP.ER.24H PO SCH (08:21)
[2020-12-30] MEDS: MEMANTINE 10 MG TAB PO SCH (08:21)
[2020-12-30] MEDS: CEFEPIME 2 GM in SODIUM CHLORIDE 0.9% 100 ML IVPB SCH ×2 (08:21→16:12)
[2020-12-30 12:06] VITALS: BP 159/92; PULSE 68; RESP 19; TEMP 97.9
--- NOTE | 2020-12-30 12:25 | P.DS ---
Providers Date of admission: 12/23/20 22:11 Expected date of discharge: 12/30/20 Attending physician: Amelia Davis MD Consults: 12/23/20 22:11 Consult Physician Routine Consulting Provider: Radha Davenport Consult Reason/Comments: SIRS/SEPSIS Do you want consulting provider notified?: Yes 12/24/20 03:16 Consult Physician Urgent Consulting Provider: Jeff Bennett Consult Reason/Comments: Uti sepsis w/ BPH Do you want consulting provider notified?: Yes 12/27/20 14:22 Consult Physician Routine Consulting Provider: Jeff Bennett Consult Reason/Comments: Epididymal orchitis Do you want consulting provider notified?: Yes Primary care physician: [facility] Course: Discharge Diagnosis: Severe sepsis secondary to UTI/pyelonephritis and epididymal orchitis UTI/pyelonephritis with urine cultures positive for pseudomonas aeruginosa Epididymal orchitis Hematuria secondary to the above Urinary retention Intractable nausea and vomiting, resolved Bilateral arm pain, secondary to ulnar nerve impingement syndrome resulting from immobility, has improved Lactic acidosis, resolved History of DVT/PE on therapeutic anticoagulation Hospital Course: Patient is a 70-year-old male with a past medical history of DVT and PE on Coumadin and BPH who presented to the hospital on 12/24/20 with a chief complaint of abdominal pain, dysuria, and hematuria. Patient diagnosed with UTI, pyelonephritis, and epididymo-orchitis. Patient was admitted under our services with consultation to infectious disease and urology. Patient has moderate swelling and erythema of bilateral testicles worse on left. Scrotal ultrasound revealed a symmetric scrotal and testicular edematous changes with focal left sided epididymitis. CT abdomen and pelvis reported no definite acute abnormality. CBC, BMP, liver profile, and coag showing no significant abnormalities. PT was therapeutic throughout hospital stay. Urinalysis was positive for ketones, protein, blood, leukocytes, and greater than 182 RBCs with only 13 WBCs. Urine culture was positive for pseudomonas aeruginosa. Covid 19 PCR was negative. Patient was placed on IV antibiotics initially Levaquin and later transferred over to cefepime. Throughout hospitalization patient also developed bilateral arm pain believed to be secondary to ulnar nerve impingement syndrome resulting from his immobility. Patient encouraged to get up out of bed and PT/OT was consulted as well. Secondary to patient's history of cervical fusion, a CT cervical and thoracic spine was completed revealing no acute fractures or malalignment, It did reveal moderate to severe left neuroforaminal stenosis at C3 through C4 and mild to moderate on both sides at C5 through C6 along with mild right neuroforaminal stenosis at T1 through T2 and T2 through T3. Patient placed on prednisone resulting in improvement of arm pain. After hydration, treatment with IV fluids, and close monitoring from our medical team, infectious disease, and urology the patient's condition significantly improved. He is currently medically stable to be discharged to fdc facility for continued PT/OT at this time. He is being discharged with Stanley catheter in place and on oral ciprofloxacin 500 mg twice daily and to take for the next 8 days totaling a 14 day treatment with antibiotic therapy for treatment of his epididymal orchitis as well as five-day course of prednisone for treatment of bilateral ulnar nerve impingement syndrome. Patient to follow up outpatient w ith his PCP, urology, and infectious disease in 1 week. Physical exam: Patient seen and fully evaluated at the bedside this morning. Patient's condition continues to improve and he appears again to be doing much better this morning. Swelling and erythema of left testicle improving and patient reports improvement in pain as well. Bilateral arm pain also improved and pt has full range of motion and use of upper extremities again. Patient's condition is stable at this time and shows no signs of acute distress. He continues to deny having any headache, lightheadedness, dizziness, chest pain or palpitations, shortness of breath, abdominal pain, nausea, vomiting, or any other complaints at this time. Vital signs reviewed and stable. General: Nontoxic, no distress and appears stated age. Derm: Skin warm and dry, normal coloration for ethnicity. Head: Atraumatic, normocephalic and symmetric. Eyes: EOMs intact, no lid lag, and anicteric sclera Mouth: no lip lesions, mucus membranes moist Cardiovascular: regular rate and rhythm with normal S1S2, no murmur, positive posterior tibial pulses bilaterally, and cap refill < 2 seconds. Lungs: Respirations even, regular, and unlabored on room air. Lungs CTA bilaterally, no rhonchi, no rales, no wheezing, and no accessory muscle usage. GI/: Abdomen soft, nontender to palpation, no guarding, no appreciable organomegaly. Stanley catheter in place. Left testicle swelling is improving and patient reports less tender to touch. Ext: ROM intact. No gross muscle atrophy, no edema, no contractures Neuro: Speech clear, face symmetrical and CN II-XII grossly intact with no noted focal neuro deficits Psych: Alert and oriented to person, place, time, and situation. Appropriate and pleasant affect. A total of 45 minutes of time were spent preparing this complex discharge summary. Patient Condition at Discharge: Stable Plan - Discharge Summary New Discharge Prescriptions: New Ciprofloxacin HCl [Cipro] 500 mg PO Q12H 8 Days #16 tab predniSONE [Deltasone] 40 mg PO DAILY 5 Days #10 tab Continue Tamsulosin HCl [Flomax] 0.4 mg PO BID Methadone [Dolophine] 5 mg PO TID Memantine [Namenda] 10 mg PO BID Omeprazole 20 mg PO DAILY Gabapentin 300 mg PO TID Bethanechol [Urecholine] 25 mg PO TID Warfarin Sodium 5 mg PO SUTUTHSA Warfarin Sodium 4 mg PO MOWEFR Discharge Medication List Bethanechol [Urecholine] 25 mg PO TID 12/23/20 [History] Gabapentin 300 mg PO TID 12/23/20 [History] Memantine [Namenda] 10 mg PO BID 12/23/20 [History] Methadone [Dolophine] 5 mg PO TID 12/23/20 [History] Omeprazole 20 mg PO DAILY 12/23/20 [History] Tamsulosin HCl [Flomax] 0.4 mg PO BID 12/23/20 [History] Warfarin Sodium 4 mg PO MOWEFR 12/23/20 [History] Warfarin Sodium 5 mg PO SUTUTHSA 12/23/20 [History] Ciprofloxacin HCl [Cipro] 500 mg PO Q12H 8 Days #16 tab 12/30/20 [Rx] predniSONE [Deltasone] 40 mg PO DAILY 5 Days #10 tab 12/30/20 [Rx] Follow up Appointment(s)/Referral(s): Jerrell Gutierrez MD [STAFF PHYSICIAN] - 1 Week Derek Poe NPC [Primary Care Provider] - 1 Week Radha Davenport MD [STAFF PHYSICIAN] - 1 Week Ambulatory/Diagnostic Orders: Prothrombin Time INR [LAB.AMB] Time Frame: 3 Days, Location: None Selected Activity/Diet/Wound Care/Special Instructions: Being discharged to [facility]. Being discharged home on Ciprofloxacin 500 mg twice daily for 8 more days totaling a 14 day course of antibiotic treatment. Discharge Disposition: TRANSFER TO SNF/ECF
--- NOTE | 2020-12-30 14:46 | P.PN ---
Subjective Progress Note Date: 12/30/20 testicular pain and swelling is improved compared to yesterday Denies any fever or chill Objective - Vital Signs Vital signs: Vital Signs Temp 97.9 F 12/30/20 12:05 Pulse 68 12/30/20 12:05 Resp 19 12/30/20 12:05 BP 159/92 12/30/20 12:05 Pulse Ox 93 L 12/30/20 12:05 Intake & Output 12/29/20 12/30/20 12/30/20 18:59 06:59 18:59 Intake Total 180 540 Output Total 600 1000 350 Balance -420 -460 -350 Weight 96.162 kg Intake: Oral 180 540 Output: Urine 600 600 350 Uretheral (Caputo) 350 Stool 400 Other: Voiding Method Indwelling Catheter Indwelling Catheter Indwelling Catheter - Constitutional General appearance: Present: no acute distress - Gastrointestinal General gastrointestinal: Present: soft. Absent: distended, tenderness - Genitourinary Genitourinary Comment(s): Left testicle indurated, improved compared to yesterday. No fluctuance appreciated - Psychiatric Psychiatric: Present: A&O x's 3 - Labs CBC & Chem 7: 12/29/20 09:24 12/29/20 09:24 Labs: Abnormal Lab Results - Last 24 Hours (Table) 12/30/20 Range/Units 07:05 PT 22.0 H (9.0-12.0) sec INR 2.3 H (<1.2) Microbiology - Last 24 Hours (Table) 12/23/20 19:50 Blood Culture - Final Blood No Growth after 144 hours 12/23/20 20:05 Blood Culture - Final Blood No Growth after 144 hours Assessment and Plan Assessment: The patient has urinary retention and has failed conservative therapy. TURP is contraindicated due to his requirement for anticoagulation. Has caputo for managment of his urinary retention for now. Admitted with UTI and left orchitis. On exam no abscess identified, tenderness improving. Scrotal ultrasound showed no intratesticular abscess. - He should be treated with a 10-14 day course of antibiotics to treat the orchi tis, he is on Cefepime for pseudomonas UTI. ID is onboard -Keep scrotum elevated -Can follow-up as an outpatient with his urologist .
[2020-12-30] MEDS ORDERED: WARFARIN 5 MG TAB PO SCH (18:00)
--- NOTE | 2020-12-30 21:52 | P.PN ---
Progress Note - Text Progress Note Date: 12/30/20 REASON FOR FOLLOWUP: Pseudomonas urinary tract infection with epididymoorchitis. INTERVAL HISTORY: The patient remains to be afebrile. The patient did have decrease in pain and discomfort to the scrotal area. pain to bilateral upper extremity has decreased. No chest pain, shortness of breath or cough. No abdominal pain. No diarrhea. PHYSICAL EXAMINATION: Blood pressure 150/80 with a pulse of 70, temperature 98. He is 92% on room air. General description: The patient is an elderly male lying in bed in no distress. Respiratory system: Unlabored breathing, clear to auscultation anteriorly. Heart: S1, S2. Regular rate and rhythm. Abdomen: Soft. No tenderness. Scrotal swelling and redness has decreased. LABS: Blood culture has been negative. DIAGNOSTIC IMPRESSION AND PLAN: Patient with Pseudomonas urinary tract infection with epididymoorchitis. pt has clinical improved with cefepime , plan is to Finish therapy with oral Cipro at least 2 weeks and close monitoring of INR.
[2020-12-31] MEDS ORDERED: WARFARIN 2 MG TAB PO SCH (18:00)
== END 2020-12-30 16:30 | DRG 872 ==
LOC: EC 19:10 → 5NMEDONC 22:11
PROVIDERS: ADMIT Internal Medicine; ATTEND Internal Medicine
DX: A41.52 Sepsis due to Pseudomonas (principal); E87.2 Acidosis; N12 Tubulo-interstitial nephritis, not specified as acute or chronic; N13.8 Other obstructive and reflux uropathy; Z20.822 Contact with and (suspected) exposure to COVID-19; I10 Essential (primary) hypertension; G54.9 Nerve root and plexus disorder, unspecified; T38.0X5A Adverse effect of glucocorticoids and synthetic analogues, initial encounter; R31.9 Hematuria, unspecified; R33.8 Other retention of urine; M48.03 Spinal stenosis, cervicothoracic region; R20.3 Hyperesthesia; N40.1 Benign prostatic hyperplasia with lower urinary tract symptoms; R65.20 Severe sepsis without septic shock; N45.3 Epididymo-orchitis; Z66 Do not resuscitate; Z79.01 Long term (current) use of anticoagulants; Z79.899 Other long term (current) drug therapy; Z86.711 Personal history of pulmonary embolism; Z86.718 Personal history of other venous thrombosis and embolism; Z87.891 Personal history of nicotine dependence; Z88.1 Allergy status to other antibiotic agents; Z98.1 Arthrodesis status; Z88.8 Allergy status to other drugs, medicaments and biological substances; Z90.49 Acquired absence of other specified parts of digestive tract
CPT/HCPCS: 36415; 72126; 72129; 74177; 76870; 80048; 80053; 81001; 82150; 82550; 83605; 83690; 83735; 84550; 85025; 85027; 85610; 87040; 87077; 87086; 87186; 87635; 93005; 93975; 96361; 96365; 96375; 96376; 99285